=== PATIENT | female | born 1965 | race American Indian/Alaskan Native ===

== ENCOUNTER 2022-01-16 14:35 | Inpatient (IN) | payer MEDICAID ==
--- NOTE | 2022-01-17 09:46 | History and Physical Report ---
GP History & Physical - History of Present Illness Date of admission: 01/17/22 Date of Examination: 01/17/22 Reason for Admission: Danger to self, Danger to others, Failure of Outpatient Treatment Chief Complaint: Suicidal/homicidal ideation History of Present Illness: The patient is a 56 year old female with history of schizophrenia, depression, and anxiety disorder who was admitted for stabilization. The patient was seen today. She is calm, and withdrawn. The patient presents with ongoing depression and intermittent suicidal ideation. She reports having multiple psychiatric inpatient admission and suicidal attempt. The patient reports cocaine use abuse, states she last used crack on 01/15; denies any withdrawal symptoms and denies crack cravings. The patient denies any current suicidal /homicidal ideation " not yet." She reports having intermittent AVH. PAST PSYCHIATRIC HISTORY: Diagnoses: schizophrenia, depression, anxiety Suicide attempts or Self-harm behavior: Yes Prior psychiatric hospitalizations: Yes Substance Abuse history: Crack Previous psychiatric medications tried: Seroquel, Effexor Outpatient treatment: Unknown PAST MEDICAL HISTORY: Family Psychiatric History None reported or documented SOCIAL HISTORY Marital Status: Single Living Arrangements: Homeless Employment Status: Unemployed Access to guns/weapons: Denies Education: Unable to tell History of Abuse: Denies Legal History: Unknown REVIEW OF SYSTEMS Constitutional: Negative for weight loss ENT: Negative for stridor Respiratory: Negative for cough or hemoptysis All other systems reviewed and are negative MENTAL STATUS General Appearance and Behavior: age appropriate, good eye contact, cooperative, calm Cooperation: Cooperative Psychomotor Behavior: within normal limits Mood: Depressed Affect and affective range: Congruent with stated mood Thought Process: goal oriented Thought Content: reality oriented Speech: Normal volume and Regular rate and rhythm Suicidal Ideation: Denies Homicidal Ideation: Denies HI Hallucinations:AV intermittent Delusions: None elicited Impulse Control: Limited Insight and Judgment: Limited Memory: Limited Attention: Attentive Orientation: alert and oriented Diagnosis: Schizoaffective Disorder Treatment Plan Patient will be admitted for inpatient psychiatric evaluation, medication adjustment and close monitoring The patient's behavior, mood, sleep and appetite will be closely monitored. Patient will be enrolled in individual and group therapeutic sessions and encou raged to attend. Patient will be provided with a safe and structured environment. Patient's physical health needs will be addressed by the Hospitalist. Hospitalist Consulted Labs including CBC, CMP, Lipid profile and Hemoglobin A1C ordered Social Assessment will be completed and the Italian Teacher will work with patient and family to ensure a suitable and safe disposition Medication adjustment will be made as clinically indicated Usual Wellness Holiness/Preservation: -Continue home meds The patient agreed on the treatment plan, understood the risk, benefit, alternative treatment, potential consequence of no treatment, and gave informed consent. Legal Status: voluntary Reaction to Hospitalization: Accepting Medications and Allergies Allergies Allergy/AdvReac Type Severity Reaction Status Date / Time cat dander Allergy Unknown Verified 01/16/22 20:32 No Known Drug Allergies Allergy Unknown Verified 01/16/22 20:32 Dust Allergy Unknown Uncoded 01/16/22 20:32 Home Medications Medication Instructions Recorded Confirmed Last Taken Type Amlodipine Besylate [Norvasc] 10 mg PO DAILY 01/16/22 01/16/22 Unknown History Levothyroxine [Synthroid] 100 mcg PO QAM 01/16/22 01/16/22 Unknown History Losartan [Cozaar] 50 mg PO QDAY 01/16/22 01/16/22 Unknown History QUEtiapine [SEROquel] 100 mg PO HS 01/16/22 01/16/22 Unknown History Venlafaxine HCl [Effexor Xr] 150 mg PO DAILY 01/16/22 01/16/22 Unknown History hydroCHLOROthiazide [HCTZ] 25 mg PO QDAY 01/16/22 01/16/22 Unknown History Apixaban [Eliquis] 5 mg PO UNK 01/17/22 01/17/22 Unknown History Cetirizine HCl [Allergy] 10 mg PO DAILY 01/17/22 01/17/22 Unknown History Diclofenac 1% [Diclofenac 1% 20 applic TP QID 01/17/22 01/17/22 Unknown History topical gel] Dolutegravir Sodium/Lamivudine 1 tab PO DAILY 01/17/22 01/17/22 Unknown History [Dovato 50-300 mg Tablet] Dolutegravir Sodium/Lamivudine 1 tab PO DAILY 01/17/22 01/17/22 Unknown History [Dovato 50-300 mg Tablet] Dolutegravir [Tivicay] 1 tab PO DAILY 01/17/22 01/17/22 Unknown History Gabapentin 300 mg PO UNK 01/17/22 01/17/22 Unknown History Meloxicam [Mobic] 15 mg PO QDAY 01/17/22 01/17/22 Unknown History Oxycodone HCl/Acetaminophen 1 each PO Q6H MDD pain 01/17/22 01/17/22 10/13/21 History [Oxycodone-Acetaminophen 10-325] lamiVUDine [Lamivudine] 2 tab PO DAILY 01/17/22 01/17/22 Unknown History metFORMIN [Glucophage] 500 mg PO UNK 01/17/22 01/17/22 Unknown History Results - Results Labs/Vitals: Laboratory Last Values POC Glucose 133 mg/dL (70-105) H 01/17/22 06:35 Physician Certification - Certification Statement Physician Certification Statement: This is an acknowledgement statement that ONEYDA ALEXIS is a 56 year old F who requires inpatient psychiatric admission for treatment which could reasonably be expected to improve the patient's condition for Estimated period of time patient will need to remain in the hospital: [ ] Plan for post-hospital care: [ ]
[2022-01-17] MEDS ORDERED: NON-FORMULARY EACH (Venlafaxine Hcl [Effexor Xr] 150 MG Cap.Er.24h) PO SCH (10:15)
[2022-01-17] MEDS ORDERED: DOLUTEGRAVIR SODIUM PO SCH (10:15)
[2022-01-17] MEDS ORDERED: [UNRECOGNIZED DRUG - OTHER] PO SCH (10:15)
[2022-01-17] MEDS ORDERED: LAMIVUDINE PO SCH (10:15)
[2022-01-17] MEDS ORDERED: amLODIPine 5 MG TAB PO SCH (11:00)
[2022-01-17] MEDS ORDERED: metFORMIN 500 MG TAB PO SCH (11:00)
[2022-01-17] MEDS ORDERED: ACETAMINOPHEN 325 MG TAB PO PRN (11:30)
[2022-01-17] MEDS: VENLAFAXINE XR 75 MG CAP PO SCH (12:43)
[2022-01-17] MEDS: DOLUTEGRAVIR 50 MG TAB PO SCH (12:45)
[2022-01-17] MEDS: hydroCHLOROthiazide 25 MG TAB PO SCH (12:45)
[2022-01-17] MEDS: CETIRIZINE 10 MG TAB PO SCH (15:07)
[2022-01-17] MEDS: QUEtiapine 100 MG TAB PO SCH (21:04)
--- NOTE | 2022-01-18 08:57 | Consultation ---
History of Present Illness - History of Present Illness History of Present Illness: The patient is a 56 year old female with history of schizophrenia, depression, and anxiety disorder who was admitted for stabilization. Internal medicine service consulted for medication management. Patient states that she has no acute symptomology. Remainder of ROS negative except for stated above. PMHx: Hypertension, schizophrenia, anxiety, HIV, hepatitis B, diabetes PSHx: Tubal ligation FHx: Reviewed noncontributory SHx: Tobacco use-denies ETOH Use-denies Recreational Drug Use-uses crack Homeless Medications and Allergies Allergies Allergy/AdvReac Type Severity Reaction Status Date / Time cat dander Allergy Unknown Verified 01/16/22 20:32 No Known Drug Allergies Allergy Unknown Verified 01/16/22 20:32 Dust Allergy Unknown Uncoded 01/16/22 20:32 Home Medications Medication Instructions Recorded Confirmed Last Taken Type Amlodipine Besylate [Norvasc] 10 mg PO DAILY 01/16/22 01/16/22 Unknown History Levothyroxine [Synthroid] 100 mcg PO QAM 01/16/22 01/16/22 Unknown History Losartan [Cozaar] 50 mg PO QDAY 01/16/22 01/16/22 Unknown History QUEtiapine [SEROquel] 100 mg PO HS 01/16/22 01/16/22 Unknown History Venlafaxine HCl [Effexor Xr] 150 mg PO DAILY 01/16/22 01/16/22 Unknown History hydroCHLOROthiazide [HCTZ] 25 mg PO QDAY 01/16/22 01/16/22 Unknown History Apixaban [Eliquis] 5 mg PO UNK 01/17/22 01/17/22 Unknown History Cetirizine HCl [Allergy] 10 mg PO DAILY 01/17/22 01/17/22 Unknown History Diclofenac 1% [Diclofenac 1% 20 applic TP QID 01/17/22 01/17/22 Unknown History topical gel] Dolutegravir Sodium/Lamivudine 1 tab PO DAILY 01/17/22 01/17/22 Unknown History [Dovato 50-300 mg Tablet] Dolutegravir Sodium/Lamivudine 1 tab PO DAILY 01/17/22 01/17/22 Unknown History [Dovato 50-300 mg Tablet] Dolutegravir [Tivicay] 1 tab PO DAILY 01/17/22 01/17/22 Unknown History Gabapentin 300 mg PO UNK 01/17/22 01/17/22 Unknown History Meloxicam [Mobic] 15 mg PO QDAY 01/17/22 01/17/22 Unknown History Oxycodone HCl/Acetaminophen 1 each PO Q6H MDD pain 01/17/22 01/17/22 10/13/21 History [Oxycodone-Acetaminophen 10-325] lamiVUDine [Lamivudine] 2 tab PO DAILY 01/17/22 01/17/22 Unknown History metFORMIN [Glucophage] 500 mg PO UNK 01/17/22 01/17/22 Unknown History Active Meds: Active Medications Acetaminophen (Acetaminophen 325 Mg Tab) 650 mg PO Q6H PRN PRN Reason: Pain, Mild (1-3) Last Admin: 01/17/22 12:42 Dose: 650 mg Amlodipine Besylate (Amlodipine 10 Mg Tab) 10 mg PO DAILY [facility] Cetirizine HCl (Cetirizine 10 Mg Tab) 10 mg PO DAILY [facility] Last Admin: 01/17/22 15:07 Dose: 10 mg Dolutegravir Sodium (Dolutegravir 50 Mg Tab) 50 mg PO DAILY [facility] Last Admin: 01/17/22 12:45 Dose: 50 mg Hydrochlorothiazide (Hydrochlorothiazide 25 Mg Tab) 25 mg PO QDAY [facility] Last Admin: 01/17/22 12:45 Dose: 25 mg Lamivudine (Lamivudine 150 Mg Tab) 300 mg PO QDAY [facility] Last Admin: 01/17/22 12:44 Dose: 300 mg Levothyroxine Sodium (Levothyroxine 100 Mcg Tab) [facility] [place] [facility] Metformin HCl (Metformin 500 Mg Tab) 500 mg PO QDAY [facility] Quetiapine Fumarate (Quetiapine 100 Mg Tab) 100 mg PO [facility] Last Admin: 01/17/22 21:04 Dose: 100 mg Venlafaxine HCl (Venlafaxine Xr 75 Mg Cap) 150 mg PO QDAY [facility] Last Admin: 01/17/22 12:43 Dose: 150 mg Review of Systems All systems: negative (noted in HPI) Exam - Physical Exam Narrative exam: Physical Exam: VITAL SIGNS: Reviewed. GENERAL: The patient appears normally developed, Vital signs as documented. Obese HEAD: No signs of head trauma. EYES: Pupils are equal. Extraocular motions intact. EARS: Hearing grossly intact. MOUTH: Oropharynx is normal. NECK: No adenopathy, no JVD. CHEST: Chest with clear breath sounds bilaterally. No wheezes, rales, or rhonchi. CARDIAC: Regular rate and rhythm. S1 and S2, without murmurs, gallops, or rubs. VASCULAR: No Edema. Peripheral pulses normal and equal in all extremities. ABDOMEN: Soft, non tender and non distended. No rebound or guarding, and no masses palpated. Bowel Sounds normal. MUSCULOSKELETAL: Good range of motion of all major joints. Extremities without clubbing, cyanosis or edema. NEUROLOGIC EXAM: Alert and oriented x 4. no focal sensory or strength deficits. PSYCHIATRIC: Mood normal. SKIN: detail exam as documented in skin assessment - Constitutional Vitals: Temp Pulse Resp BP Pulse Ox 97.9 F 53 L 18 129/76 100 01/17/22 22:00 01/17/22 22:00 01/17/22 22:00 01/17/22 19:56 01/17/22 22:00 Results - Labs CBC & Chem 7: 01/18/22 09:50 01/18/22 09:50 Assessment and Plan Assessment and Plan: #Suicidal ideation #Anxiety disorder #Schizophrenia #Hypertension #Type 2 diabetes #Cocaine use -+15 minutes behavioral health counseling on drug abstinence #HIV history #Hepatitis B #Hypothyroidism #Advance care planning Disease education conducted, care plan discussed, diagnoses discussed, prognosis discussed, patient is full code, patient acknowledges understanding and agree with care plan, +30 minutes. Plan -Psychiatric medication management per inpatient psych service -Monitor blood pressure daily -Accu-Cheks ACHS - labs reviewed: Cr: 1.5 recheck BMP tomorrow AM. Could be chronic vs acute. -Home blood pressure medication: Norvasc, hydrochlorothiazide Home thyroid medication: Levothyroxine Home diabetes medication metformin. - Home HIV medication: Tivicay - home Hep B medication: Epivir IMS will continue to follow while patient in hospital.
--- NOTE | 2022-01-18 09:36 | Progress Note ---
Subjective Date of service: 01/18/22 Subjective Comment: 01/18:The patient seen today. She states she is doing well. She continues to endorse depression and rates as 10/10. No withdrawal symptom noted and she denies having cravings for crack. The patient denies any current suicidal/homicidal ideation and denies hallucinations. REVIEW OF SYSTEMS Constitutional: Negative for weight loss ENT: Negative for stridor Respiratory: Negative for cough or hemoptysis All other systems reviewed and are negative MENTAL STATUS General Appearance and Behavior: age appropriate, good eye contact, cooperative, calm Cooperation: Cooperative Psychomotor Behavior: within normal limits Mood: Depressed Affect and affective range: Congruent with stated mood Thought Process: goal oriented Thought Content: reality oriented Speech: Normal volume and Regular rate and rhythm Suicidal Ideation: Denies Homicidal Ideation: Denies HI Hallucinations:Denies Delusions: None elicited Impulse Control: Limited Insight and Judgment: Limited Memory: Limited Attention: Attentive Orientation: alert and oriented Diagnosis: Schizoaffective Disorder Treatment Plan Patient will be admitted for inpatient psychiatric evaluation, medication adjustment and close monitoring The patient's behavior, mood, sleep and appetite will be closely monitored. Patient will be enrolled in individual and group therapeutic sessions and encouraged to attend. Patient will be provided with a safe and structured environment. Patient's physical health needs will be addressed by the Hospitalist. Hospitalist Consulted Labs including CBC, CMP, Lipid profile and Hemoglobin A1C ordered Social Assessment will be completed and the Administrative Support Associate will work with patient and family to ensure a suitable and safe disposition Medication adjustment will be made as clinically indicated Usual Wellness Denominational/Preservation: -Continue home meds The patient agreed on the treatment plan, understood the risk, benefit, alternative treatment, potential consequence of no treatment, and gave informed consent. Legal Status: voluntary Reaction to Hospitalization: Accepting Medications and Allergies Medications and Allergies Allergies Allergy/AdvReac Type Severity Reaction Status Date / Time cat dander Allergy Unknown Verified 01/16/22 20:32 No Known Drug Allergies Allergy Unknown Verified 01/16/22 20:32 Dust Allergy Unknown Uncoded 01/16/22 20:32 Home Medications Medication Instructions Recorded Confirmed Last Taken Type Amlodipine Besylate [Norvasc] 10 mg PO DAILY 01/16/22 01/16/22 Unknown History Levothyroxine [Synthroid] 100 mcg PO QAM 01/16/22 01/16/22 Unknown History Losartan [Cozaar] 50 mg PO QDAY 01/16/22 01/16/22 Unknown History QUEtiapine [SEROquel] 100 mg PO HS 01/16/22 01/16/22 Unknown History Venlafaxine HCl [Effexor Xr] 150 mg PO DAILY 01/16/22 01/16/22 Unknown History hydroCHLOROthiazide [HCTZ] 25 mg PO QDAY 01/16/22 01/16/22 Unknown History Apixaban [Eliquis] 5 mg PO UNK 01/17/22 01/17/22 Unknown History Cetirizine HCl [Allergy] 10 mg PO DAILY 01/17/22 01/17/22 Unknown History Diclofenac 1% [Diclofenac 1% 20 applic TP QID 01/17/22 01/17/22 Unknown History topical gel] Dolutegravir Sodium/Lamivudine 1 tab PO DAILY 01/17/22 01/17/22 Unknown History [Dovato 50-300 mg Tablet] Dolutegravir Sodium/Lamivudine 1 tab PO DAILY 01/17/22 01/17/22 Unknown History [Dovato 50-300 mg Tablet] Dolutegravir [Tivicay] 1 tab PO DAILY 01/17/22 01/17/22 Unknown History Gabapentin 300 mg PO UNK 01/17/22 01/17/22 Unknown History Meloxicam [Mobic] 15 mg PO QDAY 01/17/22 01/17/22 Unknown History Oxycodone HCl/Acetaminophen 1 each PO Q6H MDD pain 01/17/22 01/17/22 10/13/21 History [Oxycodone-Acetaminophen 10-325] lamiVUDine [Lamivudine] 2 tab PO DAILY 01/17/22 01/17/22 Unknown History metFORMIN [Glucophage] 500 mg PO UNK 01/17/22 01/17/22 Unknown History Active Meds: Active Medications Acetaminophen (Acetaminophen 325 Mg Tab) 650 mg PO Q6H PRN PRN Reason: Pain, Mild (1-3) Last Admin: 01/17/22 12:42 Dose: 650 mg Amlodipine Besylate (Amlodipine 10 Mg Tab) 10 mg PO DAILY [facility] Cetirizine HCl (Cetirizine 10 Mg Tab) 10 mg PO DAILY [facility] Last Admin: 01/17/22 15:07 Dose: 10 mg Dolutegravir Sodium (Dolutegravir 50 Mg Tab) 50 mg PO DAILY [facility] Last Admin: 01/17/22 12:45 Dose: 50 mg Hydrochlorothiazide (Hydrochlorothiazide 25 Mg Tab) 25 mg PO QDAY [facility] Last Admin: 01/17/22 12:45 Dose: 25 mg Lamivudine (Lamivudine 150 Mg Tab) 300 mg PO QDAY [facility] Last Admin: 01/17/22 12:44 Dose: 300 mg Levothyroxine Sodium (Levothyroxine 100 Mcg Tab) 100 mcg PO QAM [facility] Metformin HCl (Metformin 500 Mg Tab) 500 mg PO QDAY [facility] Quetiapine Fumarate (Quetiapine 100 Mg Tab) 100 mg PO [facility] Last Admin: 01/17/22 21:04 Dose: 100 mg Venlafaxine HCl (Venlafaxine Xr 75 Mg Cap) 150 mg PO QDAY [facility] Last Admin: 01/17/22 12:43 Dose: 150 mg Results - Results Labs/Vitals: Laboratory Last Values POC Glucose 104 mg/dL (70-105) 01/17/22 19:50 Last Vital Signs Temp 98.7 F 01/18/22 08:31 Pulse 67 01/18/22 08:31 Resp 16 01/18/22 08:31 BP 111/66 01/18/22 08:31 Pulse Ox 98 01/18/22 08:31
[2022-01-18] MEDS ORDERED: DOLUTEGRAVIR 50 MG TAB PO SCH (10:00)
[2022-01-18] MEDS ORDERED: LEVOTHYROXINE 100 MCG TAB PO SCH (10:00)
[2022-01-18] MEDS: DOLUTEGRAVIR 50 MG TAB PO SCH (10:14)
[2022-01-18] MEDS: CETIRIZINE 10 MG TAB PO SCH (10:14)
[2022-01-18] MEDS: VENLAFAXINE XR 75 MG CAP PO SCH (10:14)
[2022-01-18] MEDS: amLODIPine 10 MG TAB PO SCH (10:14)
[2022-01-18] MEDS: hydroCHLOROthiazide 25 MG TAB PO SCH (10:15)
[2022-01-18 10:17] LABS: Basophils % (Auto) 0.8 % (0.0-1.8); Eosinophils # (Auto) 0.2 K/mm3 (0.0-0.4); Eosinophils % (Auto) 2.4 % (0.0-4.3); Hematocrit 31.7 % (30.3-42.9); Hemoglobin 10.6 gm/dl (10.1-14.3); Lymphocytes # (Auto) 1.9 K/mm3 (1.2-5.4); Lymphocytes % (Auto) 30.1 % (13.4-35.0); Mean Corpuscular HGB Conc 34 % (30-34); Mean Corpuscular Volume 88 fl (79-97); Monocytes # (Auto) 0.5 K/mm3 (0.0-0.8); Monocytes % (Auto) 8.7 % (0.0-7.3); Platelet Count 223 K/mm3 (140-440); Red Blood Count 3.62 M/mm3 (3.65-5.03)
[2022-01-18 10:30] LABS: Albumin 4.1 g/dL (3.9-5); Calcium 9.7 mg/dL (8.4-10.2); Chol/HDL Ratio 2.08 %
[2022-01-18] MEDS ORDERED: metFORMIN 500 MG TAB PO SCH (11:00)
[2022-01-18] MEDS: QUEtiapine 100 MG TAB PO SCH (21:12)
[2022-01-19] MEDS: LEVOTHYROXINE 100 MCG TAB PO SCH (06:06)
--- NOTE | 2022-01-19 07:56 | Progress Note ---
Assessment and Plan Assessment and plan: Assessment and Plan: #Suicidal ideation #Anxiety disorder #Schizophrenia #Hypertension #Type 2 diabetes #Chronic kidney disease, Stage 3 #Cocaine use -+15 minutes behavioral health counseling on drug abstinence #HIV history #Hepatitis B #Hypothyroidism #Advance care planning Disease education conducted, care plan discussed, diagnoses discussed, prognosis discussed, patient is full code, patient acknowledges understanding and agree with care plan, +30 minutes. Plan -Psychiatric medication management per inpatient psych service -Monitor blood pressure daily -Accu-Cheks ACHS - labs reviewed: Cr: 1.5 recheck BMP reveals Cr: 1.6 Likely chronic. -Home blood pressure medication: Norvasc, hydrochlorothiazide Home thyroid medication: Levothyroxine Home diabetes medication metformin. - Home HIV medication: Tivicay - home Hep B medication: Epivir IMS will continue to follow while patient in hospital. History Interval history: NO acute complaints. Hospitalist Physical - Physical exam Narrative exam: Physical Exam: VITAL SIGNS: Reviewed. GENERAL: The patient appears normally developed, Vital signs as documented. Obese HEAD: No signs of head trauma. EYES: Pupils are equal. Extraocular motions intact. EARS: Hearing grossly intact. MOUTH: Oropharynx is normal. NECK: No adenopathy, no JVD. CHEST: Chest with clear breath sounds bilaterally. No wheezes, rales, or rhonchi. CARDIAC: Regular rate and rhythm. S1 and S2, without murmurs, gallops, or rubs. VASCULAR: No Edema. Peripheral pulses normal and equal in all extremities. ABDOMEN: Soft, non tender and non distended. No rebound or guarding, and no masses palpated. Bowel Sounds normal. MUSCULOSKELETAL: Good range of motion of all major joints. Extremities without clubbing, cyanosis or edema. NEUROLOGIC EXAM: Alert and oriented x 4. no focal sensory or strength deficits. PSYCHIATRIC: Mood normal. SKIN: detail exam as documented in skin assessment - Constitutional Vitals: Temp Pulse Resp BP Pulse Ox 98.5 F 64 18 123/75 99 01/18/22 18:56 01/18/22 18:56 01/18/22 18:56 01/18/22 18:56 01/18/22 18:56 Results - Labs CBC & Chem 7: 01/18/22 09:50 01/19/22 13:32 Labs: Laboratory Last Values WBC 6.3 K/mm3 (4.5-11.0) 01/18/22 09:50 RBC 3.62 M/mm3 (3.65-5.03) L 01/18/22 09:50 Hgb 10.6 gm/dl (10.1-14.3) 01/18/22 09:50 Hct 31.7 % (30.3-42.9) 01/18/22 09:50 MCV 88 fl (79-97) 01/18/22 09:50 MCH 29 pg (28-32) 01/18/22 09:50 MCHC 34 % (30-34) 01/18/22 09:50 RDW 14.0 % (13.2-15.2) 01/18/22 09:50 Plt Count 223 K/mm3 (140-440) 01/18/22 09:50 Lymph % (Auto) 30.1 % (13.4-35.0) 01/18/22 09:50 Nye % (Auto) 8.7 % (0.0-7.3) H 01/18/22 09:50 Eos % (Auto) 2.4 % (0.0-4.3) 01/18/22 09:50 Baso % (Auto) 0.8 % (0.0-1.8) 01/18/22 09:50 Lymph # (Auto) 1.9 K/mm3 (1.2-5.4) 01/18/22 09:50 Nye # (Auto) 0.5 K/mm3 (0.0-0.8) 01/18/22 09:50 Eos # (Auto) 0.2 K/mm3 (0.0-0.4) 01/18/22 09:50 Baso # (Auto) 0.0 K/mm3 (0.0-0.1) 01/18/22 09:50 Seg Neutrophils % 58.0 % (40.0-70.0) 01/18/22 09:50 Seg Neutrophils # 3.6 K/mm3 (1.8-7.7) 01/18/22 09:50 Sodium 143 mmol/L (137-145) 01/18/22 09:50 Potassium 4.1 mmol/L (3.6-5.0) 01/18/22 09:50 Chloride 103.9 mmol/L (98-107) 01/18/22 09:50 Carbon Dioxide 31 mmol/L (22-30) H 01/18/22 09:50 Anion Gap 12 mmol/L 01/18/22 09:50 BUN 26 mg/dL (7-17) H 01/18/22 09:50 Creatinine 1.5 mg/dL (0.6-1.2) H 01/18/22 09:50 Estimated GFR 43 ml/min 01/18/22 09:50 BUN/Creatinine Ratio 17 % 01/18/22 09:50 Glucose 85 mg/dL (65-100) 01/18/22 09:50 POC Glucose 89 mg/dL (70-105) 01/19/22 06:21 Hemoglobin A1c 6.4 % (4-6) H 01/18/22 09:50 Calcium 9.7 mg/dL (8.4-10.2) 01/18/22 09:50 Total Bilirubin 0.30 mg/dL (0.1-1.2) 01/18/22 09:50 AST 12 units/L (5-40) 01/18/22 09:50 ALT 11 units/L (7-56) 01/18/22 09:50 Alkaline Phosphatase 88 units/L (35-129) 01/18/22 09:50 Total Protein 6.6 g/dL (6.3-8.2) 01/18/22 09:50 Albumin 4.1 g/dL (3.9-5) 01/18/22 09:50 Albumin/Globulin Ratio 1.6 % 01/18/22 09:50 Triglycerides 60 mg/dL (2-149) 01/18/22 09:50 Cholesterol 177 mg/dL (50-199) 01/18/22 09:50 LDL Cholesterol Direct 77 mg/dL (50-130) 01/18/22 09:50 HDL Cholesterol 85 mg/dL (40-59) H 01/18/22 09:50 Cholesterol/HDL Ratio 2.08 % 01/18/22 09:50 TSH 1.110 mlU/mL (0.270-4.200) 01/18/22 09:50 Langston/IV: Voiding Method Toilet Active Medications - Current Medications Current Medications: Generic Name Dose Route Start Last Admin Trade Name Matiasq PRN Reason Stop Dose Admin Acetaminophen 650 mg 01/17/22 11:30 01/17/22 12:42 Acetaminophen 325 Mg Tab PO 650 mg Q6H PRN Administration Pain, Mild (1-3) Amlodipine Besylate 10 mg 01/18/22 10:00 01/18/22 10:14 Amlodipine 10 Mg Tab PO 10 mg DAILY NOHEMI Administration Cetirizine HCl 10 mg 01/17/22 11:00 01/18/22 10:14 Cetirizine 10 Mg Tab PO 10 mg DAILY NOHEMI Administration Dolutegravir Sodium 50 mg 01/17/22 11:00 01/18/22 10:14 Dolutegravir 50 Mg Tab PO 50 mg DAILY NOHEMI Administration Hydrochlorothiazide 25 mg 01/17/22 11:00 01/18/22 10:15 Hydrochlorothiazide 25 Mg Tab PO 25 mg QDAY NOHEMI Administration Lamivudine 300 mg 01/17/22 11:00 01/18/22 10:14 Lamivudine 150 Mg Tab PO 300 mg QDAY NOHEMI Administration Levothyroxine Sodium 100 mcg 01/19/22 06:00 01/19/22 06:06 Levothyroxine 100 Mcg Tab PO 100 mcg 0600 NOHEMI Administration Metformin HCl 500 mg 01/19/22 08:00 Metformin 500 Mg Tab PO QDDIAB NOHEMI Quetiapine Fumarate 100 mg 01/17/22 22:00 01/18/22 21:12 Quetiapine 100 Mg Tab PO 100 mg HS NOHEMI Administration Venlafaxine HCl 150 mg 01/17/22 10:15 01/18/22 10:14 Venlafaxine Xr 75 Mg Cap PO 150 mg QDAY NOHEMI Administration
--- NOTE | 2022-01-19 09:34 | Progress Note ---
Subjective Date of service: 01/19/22 Subjective Comment: 01/19:The patient seen today. She states she is feeling better, reports depression as 8/10. She reports sleep and appetite as good. The patient denies any current suicidal/homicidal ideation and denies hallucinations. No changes made today. 01/18:The patient seen today. She states she is doing well. She continues to endorse depression and rates as 10/10. No withdrawal symptom noted and she denies having cravings for crack. The patient denies any current suicidal/homicidal ideation and denies hallucinations. REVIEW OF SYSTEMS Constitutional: Negative for weight loss ENT: Negative for stridor Respiratory: Negative for cough or hemoptysis All other systems reviewed and are negative MENTAL STATUS General Appearance and Behavior: age appropriate, good eye contact, cooperative, calm Cooperation: Cooperative Psychomotor Behavior: within normal limits Mood: Depressed Affect and affective range: Congruent with stated mood Thought Process: goal oriented Thought Content: reality oriented Speech: Normal volume and Regular rate and rhythm Suicidal Ideation: Denies Homicidal Ideation: Denies HI Hallucinations:Denies Delusions: None elicited Impulse Control: Limited Insight and Judgment: Limited Memory: Limited Attention: Attentive Orientation: alert and oriented Diagnosis: Schizoaffective Disorder Treatment Plan Patient will be admitted for inpatient psychiatric evaluation, medication adjustment and close monitoring The patient's behavior, mood, sleep and appetite will be closely monitored. Patient will be enrolled in individual and group therapeutic sessions and encouraged to attend. Patient will be provided with a safe and structured environment. Patient's physical health needs will be addressed by the Hospitalist. Hospitalist Consulted Labs including CBC, CMP, Lipid profile and Hemoglobin A1C ordered Social Assessment will be completed and the Costume Shop Manager will work with patient and family to ensure a suitable and safe disposition Medication adjustment will be made as clinically indicated Usual Wellness Hoahaoism/Preservation: -Continue home meds The patient agreed on the treatment plan, understood the risk, benefit, alternative treatment, potential consequence of no treatment, and gave informed consent. Legal Status: voluntary Reaction to Hospitalization: Accepting Medications and Allergies Medications and Allergies Allergies Allergy/AdvReac Type Severity Reaction Status Date / Time cat dander Allergy Unknown Verified 01/16/22 20:32 No Known Drug Allergies Allergy Unknown Verified 01/16/22 20:32 Dust Allergy Unknown Uncoded 01/16/22 20:32 Home Medications Medication Instructions Recorded Confirmed Last Taken Type Amlodipine Besylate [Norvasc] 10 mg PO DAILY 01/16/22 01/16/22 Unknown History Levothyroxine [Synthroid] 100 mcg PO QAM 01/16/22 01/16/22 Unknown History Losartan [Cozaar] 50 mg PO QDAY 01/16/22 01/16/22 Unknown History QUEtiapine [SEROquel] 100 mg PO HS 01/16/22 01/16/22 Unknown History Venlafaxine HCl [Effexor Xr] 150 mg PO DAILY 01/16/22 01/16/22 Unknown History hydroCHLOROthiazide [HCTZ] 25 mg PO QDAY 01/16/22 01/16/22 Unknown History Apixaban [Eliquis] 5 mg PO UNK 01/17/22 01/17/22 Unknown History Cetirizine HCl [Allergy] 10 mg PO DAILY 01/17/22 01/17/22 Unknown History Diclofenac 1% [Diclofenac 1% 20 applic TP QID 01/17/22 01/17/22 Unknown History topical gel] Dolutegravir Sodium/Lamivudine 1 tab PO DAILY 01/17/22 01/17/22 Unknown History [Dovato 50-300 mg Tablet] Dolutegravir Sodium/Lamivudine 1 tab PO DAILY 01/17/22 01/17/22 Unknown History [Dovato 50-300 mg Tablet] Dolutegravir [Tivicay] 1 tab PO DAILY 01/17/22 01/17/22 Unknown History Gabapentin 300 mg PO UNK 01/17/22 01/17/22 Unknown History Meloxicam [Mobic] 15 mg PO QDAY 01/17/22 01/17/22 Unknown History Oxycodone HCl/Acetaminophen 1 each PO Q6H MDD pain 01/17/22 01/17/22 10/13/21 History [Oxycodone-Acetaminophen 10-325] lamiVUDine [Lamivudine] 2 tab PO DAILY 01/17/22 01/17/22 Unknown History metFORMIN [Glucophage] 500 mg PO UNK 01/17/22 01/17/22 Unknown History Active Meds: Active Medications Acetaminophen (Acetaminophen 325 Mg Tab) 650 mg PO Q6H PRN PRN Reason: Pain, Mild (1-3) Last Admin: 01/17/22 12:42 Dose: 650 mg Amlodipine Besylate (Amlodipine 10 Mg Tab) 10 mg PO DAILY [facility] Last Admin: 01/18/22 10:14 Dose: 10 mg Cetirizine HCl (Cetirizine 10 Mg Tab) 10 mg PO DAILY [facility] Last Admin: 01/18/22 10:14 Dose: 10 mg Dolutegravir Sodium (Dolutegravir 50 Mg Tab) 50 mg PO DAILY [facility] Last Admin: 01/18/22 10:14 Dose: 50 mg Hydrochlorothiazide (Hydrochlorothiazide 25 Mg Tab) 25 mg PO QDAY [facility] Last Admin: 01/18/22 10:15 Dose: 25 mg Lamivudine (Lamivudine 150 Mg Tab) 300 mg PO QDAY [facility] Last Admin: 01/18/22 10:14 Dose: 300 mg Levothyroxine Sodium (Levothyroxine 100 Mcg Tab) 100 mcg PO 0600 [facility] Last Admin: 01/19/22 06:06 Dose: 100 mcg Metformin HCl (Metformin 500 Mg Tab) 500 mg PO QDDIAB [facility] Quetiapine Fumarate (Quetiapine 100 Mg Tab) 100 mg PO [facility] Last Admin: 01/18/22 21:12 Dose: 100 mg Venlafaxine HCl (Venlafaxine Xr 75 Mg Cap) 150 mg PO QDAY [facility] Last Admin: 01/18/22 10:14 Dose: 150 mg Results - Results Labs/Vitals: Laboratory Last Values WBC 6.3 K/mm3 (4.5-11.0) 01/18/22 09:50 RBC 3.62 M/mm3 (3.65-5.03) L 01/18/22 09:50 Hgb 10.6 gm/dl (10.1-14.3) 01/18/22 09:50 Hct 31.7 % (30.3-42.9) 01/18/22 09:50 MCV 88 fl (79-97) 01/18/22 09:50 MCH 29 pg (28-32) 01/18/22 09:50 MCHC 34 % (30-34) 01/18/22 09:50 RDW 14.0 % (13.2-15.2) 01/18/22 09:50 Plt Count 223 K/mm3 (140-440) 01/18/22 09:50 Lymph % (Auto) 30.1 % (13.4-35.0) 01/18/22 09:50 [place] % (Auto) 8.7 % (0.0-7.3) H 01/18/22 09:50 Eos % (Auto) 2.4 % (0.0-4.3) 01/18/22 09:50 Baso % (Auto) 0.8 % (0.0-1.8) 01/18/22 09:50 Lymph # (Auto) 1.9 K/mm3 (1.2-5.4) 01/18/22 09:50 [place] # (Auto) 0.5 K/mm3 (0.0-0.8) 01/18/22 09:50 Eos # (Auto) 0.2 K/mm3 (0.0-0.4) 01/18/22 09:50 Baso # (Auto) 0.0 K/mm3 (0.0-0.1) 01/18/22 09:50 Seg Neutrophils % 58.0 % (40.0-70.0) 01/18/22 09:50 Seg Neutrophils # 3.6 K/mm3 (1.8-7.7) 01/18/22 09:50 Sodium 143 mmol/L (137-145) 01/18/22 09:50 Potassium 4.1 mmol/L (3.6-5.0) 01/18/22 09:50 Chloride 103.9 mmol/L (98-107) 01/18/22 09:50 Carbon Dioxide 31 mmol/L (22-30) H 01/18/22 09:50 Anion Gap 12 mmol/L 01/18/22 09:50 BUN 26 mg/dL (7-17) H 01/18/22 09:50 Creatinine 1.5 mg/dL (0.6-1.2) H 01/18/22 09:50 Estimated GFR 43 ml/min 01/18/22 09:50 BUN/Creatinine Ratio 17 % 01/18/22 09:50 Glucose 85 mg/dL (65-100) 01/18/22 09:50 POC Glucose 89 mg/dL (70-105) 01/19/22 06:21 Hemoglobin A1c 6.4 % (4-6) H 01/18/22 09:50 Calcium 9.7 mg/dL (8.4-10.2) 01/18/22 09:50 Total Bilirubin 0.30 mg/dL (0.1-1.2) 01/18/22 09:50 AST 12 units/L (5-40) 01/18/22 09:50 ALT 11 units/L (7-56) 01/18/22 09:50 Alkaline Phosphatase 88 units/L (35-129) 01/18/22 09:50 Total Protein 6.6 g/dL (6.3-8.2) 01/18/22 09:50 Albumin 4.1 g/dL (3.9-5) 01/18/22 09:50 Albumin/Globulin Ratio 1.6 % 01/18/22 09:50 Triglycerides 60 mg/dL (2-149) 01/18/22 09:50 Cholesterol 177 mg/dL (50-199) 01/18/22 09:50 LDL Cholesterol Direct 77 mg/dL (50-130) 01/18/22 09:50 HDL Cholesterol 85 mg/dL (40-59) H 01/18/22 09:50 Cholesterol/HDL Ratio 2.08 % 01/18/22 09:50 TSH 1.110 mlU/mL (0.270-4.200) 01/18/22 09:50 Last Vital Signs Temp 98.5 F 01/18/22 18:56 Pulse 64 01/18/22 18:56 Resp 18 01/18/22 18:56 BP 123/75 01/18/22 18:56 Pulse Ox 99 01/18/22 18:56
[2022-01-19] MEDS: VENLAFAXINE XR 75 MG CAP PO SCH (10:15)
[2022-01-19] MEDS: amLODIPine 10 MG TAB PO SCH (10:15)
[2022-01-19] MEDS: DOLUTEGRAVIR 50 MG TAB PO SCH (10:16)
[2022-01-19] MEDS: hydroCHLOROthiazide 25 MG TAB PO SCH (10:17)
[2022-01-19] MEDS: metFORMIN 500 MG TAB PO SCH (10:17)
[2022-01-19] MEDS: CETIRIZINE 10 MG TAB PO SCH (10:26)
[2022-01-19 14:05] LABS: Calcium 9.1 mg/dL (8.4-10.2)
[2022-01-19] MEDS: QUEtiapine 100 MG TAB PO SCH (21:10)
[2022-01-20] MEDS: LEVOTHYROXINE 100 MCG TAB PO SCH (06:24)
[2022-01-20] MEDS: amLODIPine 10 MG TAB PO SCH (09:20)
[2022-01-20] MEDS: CETIRIZINE 10 MG TAB PO SCH (09:20)
[2022-01-20] MEDS: hydroCHLOROthiazide 25 MG TAB PO SCH (09:20)
[2022-01-20] MEDS: DOLUTEGRAVIR 50 MG TAB PO SCH (09:20)
[2022-01-20] MEDS: VENLAFAXINE XR 75 MG CAP PO SCH (09:20)
[2022-01-20] MEDS: metFORMIN 500 MG TAB PO SCH (09:21)
--- NOTE | 2022-01-20 10:55 | Progress Note ---
Subjective Date of service: 01/20/22 Principal diagnosis: Schizoaffective Subjective Comment: The patient was seen today. She says she feels alright but still feels "a little suicidal and homicidal." The patient says she hears voices telling her things she can't make out. REVIEW OF SYSTEMS Constitutional: Negative for weight loss ENT: Negative for stridor Respiratory: Negative for cough or hemoptysis All other systems reviewed and are negative MENTAL STATUS General Appearance and Behavior: age appropriate, good eye contact, cooperative, calm Cooperation: Cooperative Psychomotor Behavior: within normal limits Mood: Depressed Affect and affective range: Congruent with stated mood Thought Process: goal oriented Thought Content: reality oriented Speech: Normal volume and Regular rate and rhythm Suicidal Ideation: Yes Homicidal Ideation: Yes Hallucinations: Yes Delusions: None elicited Impulse Control: Limited Insight and Judgment: Limited Memory: Limited Attention: Attentive Orientation: alert and oriented Diagnosis: Schizoaffective Disorder Treatment Plan Patient will be admitted for inpatient psychiatric evaluation, medication adjustment and close monitoring The patient's behavior, mood, sleep and appetite will be closely monitored. Patient will be enrolled in individual and group therapeutic sessions and encouraged to attend. Patient will be provided with a safe and structured environment. Patient's physical health needs will be addressed by the Hospitalist. Hospitalist Consulted Labs including CBC, CMP, Lipid profile and Hemoglobin A1C ordered Social Assessment will be completed and the Medical Advisor will work with patient and family to ensure a suitable and safe disposition Medication adjustment will be made as clinically indicated Usual Wellness Anglican/Preservation: Start Seroquel 25mg po qam in addition to nightly dose The patient agreed on the treatment plan, understood the risk, benefit, alternative treatment, potential consequence of no treatment, and gave informed consent. Legal Status: voluntary Reaction to Hospitalization: Accepting Case staffed with Dr. Carvalho Medications and Allergies Allergies Allergy/AdvReac Type Severity Reaction Status Date / Time cat dander Allergy Unknown Verified 01/16/22 20:32 No Known Drug Allergies Allergy Unknown Verified 01/16/22 20:32 Dust Allergy Unknown Uncoded 01/16/22 20:32 Home Medications Medication Instructions Recorded Confirmed Last Taken Type Amlodipine Besylate [Norvasc] 10 mg PO DAILY 01/16/22 01/16/22 Unknown History Levothyroxine [Synthroid] 100 mcg PO QAM 01/16/22 01/16/22 Unknown History Losartan [Cozaar] 50 mg PO QDAY 01/16/22 01/16/22 Unknown History QUEtiapine [SEROquel] 100 mg PO HS 01/16/22 01/16/22 Unknown History Venlafaxine HCl [Effexor Xr] 150 mg PO DAILY 01/16/22 01/16/22 Unknown History hydroCHLOROthiazide [HCTZ] 25 mg PO QDAY 01/16/22 01/16/22 Unknown History Apixaban [Eliquis] 5 mg PO UNK 01/17/22 01/17/22 Unknown History Cetirizine HCl [Allergy] 10 mg PO DAILY 01/17/22 01/17/22 Unknown History Diclofenac 1% [Diclofenac 1% 20 applic TP QID 01/17/22 01/17/22 Unknown History topical gel] Dolutegravir Sodium/Lamivudine 1 tab PO DAILY 01/17/22 01/17/22 Unknown History [Dovato 50-300 mg Tablet] Dolutegravir Sodium/Lamivudine 1 tab PO DAILY 01/17/22 01/17/22 Unknown History [Dovato 50-300 mg Tablet] Dolutegravir [Tivicay] 1 tab PO DAILY 01/17/22 01/17/22 Unknown History Gabapentin 300 mg PO UNK 01/17/22 01/17/22 Unknown History Meloxicam [Mobic] 15 mg PO QDAY 01/17/22 01/17/22 Unknown History Oxycodone HCl/Acetaminophen 1 each PO Q6H MDD pain 01/17/22 01/17/22 10/13/21 History [Oxycodone-Acetaminophen 10-325] lamiVUDine [Lamivudine] 2 tab PO DAILY 01/17/22 01/17/22 Unknown History metFORMIN [Glucophage] 500 mg PO UNK 01/17/22 01/17/22 Unknown History Active Meds: Active Medications Acetaminophen (Acetaminophen 325 Mg Tab) 650 mg PO Q6H PRN PRN Reason: Pain, Mild (1-3) Last Admin: 01/17/22 12:42 Dose: 650 mg Amlodipine Besylate (Amlodipine 10 Mg Tab) 10 mg PO DAILY [facility] Last Admin: 01/20/22 09:20 Dose: 10 mg Cetirizine HCl (Cetirizine 10 Mg Tab) 10 mg PO DAILY [facility] Last Admin: 01/20/22 09:20 Dose: 10 mg Dolutegravir Sodium (Dolutegravir 50 Mg Tab) 50 mg PO DAILY [facility] Last Admin: 01/20/22 09:20 Dose: 50 mg Hydrochlorothiazide (Hydrochlorothiazide 25 Mg Tab) 25 mg PO QDAY [facility] Last Admin: 01/20/22 09:20 Dose: 25 mg Lamivudine (Lamivudine 150 Mg Tab) 300 mg PO QDAY [facility] Last Admin: 01/20/22 09:20 Dose: 300 mg Levothyroxine Sodium (Levothyroxine 100 Mcg Tab) 100 mcg PO 0600 [facility] Last Admin: 01/20/22 06:24 Dose: 100 mcg Metformin HCl (Metformin 500 Mg Tab) 500 mg PO QDDIAB [facility] Last Admin: 01/20/22 09:21 Dose: 500 mg Quetiapine Fumarate (Quetiapine 100 Mg Tab) 100 mg PO HS [facility] Last Admin: 01/19/22 21:10 Dose: 100 mg Venlafaxine HCl (Venlafaxine Xr 75 Mg Cap) 150 mg PO QDAY [facility] Last Admin: 01/20/22 09:20 Dose: 150 mg Results - Results Labs/Vitals: Laboratory Last Values WBC 6.3 K/mm3 (4.5-11.0) 01/18/22 09:50 RBC 3.62 M/mm3 (3.65-5.03) L 01/18/22 09:50 Hgb 10.6 gm/dl (10.1-14.3) 01/18/22 09:50 Hct 31.7 % (30.3-42.9) 01/18/22 09:50 MCV 88 fl (79-97) 01/18/22 09:50 MCH 29 pg (28-32) 01/18/22 09:50 MCHC 34 % (30-34) 01/18/22 09:50 RDW 14.0 % (13.2-15.2) 01/18/22 09:50 Plt Count 223 K/mm3 (140-440) 01/18/22 09:50 Lymph % (Auto) 30.1 % (13.4-35.0) 01/18/22 09:50 [place] % (Auto) 8.7 % (0.0-7.3) H 01/18/22 09:50 Eos % (Auto) 2.4 % (0.0-4.3) 01/18/22 09:50 Baso % (Auto) 0.8 % (0.0-1.8) 01/18/22 09:50 Lymph # (Auto) 1.9 K/mm3 (1.2-5.4) 01/18/22 09:50 [place] # (Auto) 0.5 K/mm3 (0.0-0.8) 01/18/22 09:50 Eos # (Auto) 0.2 K/mm3 (0.0-0.4) 01/18/22 09:50 Baso # (Auto) 0.0 K/mm3 (0.0-0.1) 01/18/22 09:50 Seg Neutrophils % 58.0 % (40.0-70.0) 01/18/22 09:50 Seg Neutrophils # 3.6 K/mm3 (1.8-7.7) 01/18/22 09:50 Sodium 145 mmol/L (137-145) 01/19/22 13:32 Potassium 4.0 mmol/L (3.6-5.0) 01/19/22 13:32 Chloride 105.1 mmol/L (98-107) 01/19/22 13:32 Carbon Dioxide 31 mmol/L (22-30) H 01/19/22 13:32 Anion Gap 13 mmol/L 01/19/22 13:32 BUN 26 mg/dL (7-17) H 01/19/22 13:32 Creatinine 1.6 mg/dL (0.6-1.2) H 01/19/22 13:32 Estimated GFR 40 ml/min 01/19/22 13:32 BUN/Creatinine Ratio 16 % 01/19/22 13:32 Glucose 114 mg/dL (65-100) H 01/19/22 13:32 POC Glucose 84 mg/dL (70-105) 01/20/22 06:30 Hemoglobin A1c 6.4 % (4-6) H 01/18/22 09:50 Calcium 9.1 mg/dL (8.4-10.2) 01/19/22 13:32 Total Bilirubin 0.30 mg/dL (0.1-1.2) 01/18/22 09:50 AST 12 units/L (5-40) 01/18/22 09:50 ALT 11 units/L (7-56) 01/18/22 09:50 Alkaline Phosphatase 88 units/L (35-129) 01/18/22 09:50 Total Protein 6.6 g/dL (6.3-8.2) 01/18/22 09:50 Albumin 4.1 g/dL (3.9-5) 01/18/22 09:50 Albumin/Globulin Ratio 1.6 % 01/18/22 09:50 Triglycerides 60 mg/dL (2-149) 01/18/22 09:50 Cholesterol 177 mg/dL (50-199) 01/18/22 09:50 LDL Cholesterol Direct 77 mg/dL (50-130) 01/18/22 09:50 HDL Cholesterol 85 mg/dL (40-59) H 01/18/22 09:50 Cholesterol/HDL Ratio 2.08 % 01/18/22 09:50 TSH 1.110 mlU/mL (0.270-4.200) 01/18/22 09:50 Last Vital Signs Temp 97.8 F 01/20/22 07:52 Pulse 54 L 01/20/22 07:52 Resp 16 01/20/22 07:52 BP 118/70 01/20/22 07:52 Pulse Ox 99 01/20/22 07:52
--- NOTE | 2022-01-20 14:31 | Progress Note ---
Assessment and Plan Assessment and plan: Assessment and Plan: #Suicidal ideation #Anxiety disorder #Schizophrenia #Hypertension #Type 2 diabetes #Chronic kidney disease, Stage 3 #Cocaine use -+15 minutes behavioral health counseling on drug abstinence #HIV history #Hepatitis B #Hypothyroidism #Advance care planning Disease education conducted, care plan discussed, diagnoses discussed, prognosis discussed, patient is full code, patient acknowledges understanding and agree with care plan, +30 minutes. Plan -Psychiatric medication management per inpatient psych service -Monitor blood pressure daily -Accu-Cheks ACHS - labs reviewed: Cr: 1.5 recheck BMP reveals Cr: 1.6 Likely chronic. -Home blood pressure medication: Norvasc, hydrochlorothiazide Home thyroid medication: Levothyroxine Home diabetes medication metformin. - Home HIV medication: Tivicay - home Hep B medication: Epivir IMS will continue to follow while patient in hospital. History Interval history: No complaints this AM. Hospitalist Physical - Physical exam Narrative exam: Physical Exam: VITAL SIGNS: Reviewed. GENERAL: The patient appears normally developed, Vital signs as documented. Obese HEAD: No signs of head trauma. EYES: Pupils are equal. Extraocular motions intact. EARS: Hearing grossly intact. MOUTH: Oropharynx is normal. NECK: No adenopathy, no JVD. CHEST: Chest with clear breath sounds bilaterally. No wheezes, rales, or rhonchi. CARDIAC: Regular rate and rhythm. S1 and S2, without murmurs, gallops, or rubs. VASCULAR: No Edema. Peripheral pulses normal and equal in all extremities. ABDOMEN: Soft, non tender and non distended. No rebound or guarding, and no masses palpated. Bowel Sounds normal. MUSCULOSKELETAL: Good range of motion of all major joints. Extremities without clubbing, cyanosis or edema. NEUROLOGIC EXAM: Alert and oriented x 4. no focal sensory or strength deficits. PSYCHIATRIC: Mood normal. SKIN: detail exam as documented in skin assessment - Constitutional Vitals: Temp Pulse Resp BP Pulse Ox 97.8 F 54 L 16 118/70 99 01/20/22 07:52 01/20/22 07:52 01/20/22 07:52 01/20/22 07:52 01/20/22 07:52 Results - Labs CBC & Chem 7: 01/18/22 09:50 01/19/22 13:32 Labs: Laboratory Last Values WBC 6.3 K/mm3 (4.5-11.0) 01/18/22 09:50 RBC 3.62 M/mm3 (3.65-5.03) L 01/18/22 09:50 Hgb 10.6 gm/dl (10.1-14.3) 01/18/22 09:50 Hct 31.7 % (30.3-42.9) 01/18/22 09:50 MCV 88 fl (79-97) 01/18/22 09:50 MCH 29 pg (28-32) 01/18/22 09:50 MCHC 34 % (30-34) 01/18/22 09:50 RDW 14.0 % (13.2-15.2) 01/18/22 09:50 Plt Count 223 K/mm3 (140-440) 01/18/22 09:50 Lymph % (Auto) 30.1 % (13.4-35.0) 01/18/22 09:50 [place] % (Auto) 8.7 % (0.0-7.3) H 01/18/22 09:50 Eos % (Auto) 2.4 % (0.0-4.3) 01/18/22 09:50 Baso % (Auto) 0.8 % (0.0-1.8) 01/18/22 09:50 Lymph # (Auto) 1.9 K/mm3 (1.2-5.4) 01/18/22 09:50 [place] # (Auto) 0.5 K/mm3 (0.0-0.8) 01/18/22 09:50 Eos # (Auto) 0.2 K/mm3 (0.0-0.4) 01/18/22 09:50 Baso # (Auto) 0.0 K/mm3 (0.0-0.1) 01/18/22 09:50 Seg Neutrophils % 58.0 % (40.0-70.0) 01/18/22 09:50 Seg Neutrophils # 3.6 K/mm3 (1.8-7.7) 01/18/22 09:50 Sodium 145 mmol/L (137-145) 01/19/22 13:32 Potassium 4.0 mmol/L (3.6-5.0) 01/19/22 13:32 Chloride 105.1 mmol/L (98-107) 01/19/22 13:32 Carbon Dioxide 31 mmol/L (22-30) H 01/19/22 13:32 Anion Gap 13 mmol/L 01/19/22 13:32 BUN 26 mg/dL (7-17) H 01/19/22 13:32 Creatinine 1.6 mg/dL (0.6-1.2) H 01/19/22 13:32 Estimated GFR 40 ml/min 01/19/22 13:32 BUN/Creatinine Ratio 16 % 01/19/22 13:32 Glucose 114 mg/dL (65-100) H 01/19/22 13:32 POC Glucose 84 mg/dL (70-105) 01/20/22 06:30 Hemoglobin A1c 6.4 % (4-6) H 01/18/22 09:50 Calcium 9.1 mg/dL (8.4-10.2) 01/19/22 13:32 Total Bilirubin 0.30 mg/dL (0.1-1.2) 01/18/22 09:50 AST 12 units/L (5-40) 01/18/22 09:50 ALT 11 units/L (7-56) 01/18/22 09:50 Alkaline Phosphatase 88 units/L (35-129) 01/18/22 09:50 Total Protein 6.6 g/dL (6.3-8.2) 01/18/22 09:50 Albumin 4.1 g/dL (3.9-5) 01/18/22 09:50 Albumin/Globulin Ratio 1.6 % 01/18/22 09:50 Triglycerides 60 mg/dL (2-149) 01/18/22 09:50 Cholesterol 177 mg/dL (50-199) 01/18/22 09:50 LDL Cholesterol Direct 77 mg/dL (50-130) 01/18/22 09:50 HDL Cholesterol 85 mg/dL (40-59) H 01/18/22 09:50 Cholesterol/HDL Ratio 2.08 % 01/18/22 09:50 TSH 1.110 mlU/mL (0.270-4.200) 01/18/22 09:50 [place]/IV: Voiding Method Toilet Active Medications - Current Medications Current Medications: Generic Name Dose Route Start Last Admin Trade Name Freq PRN Reason Stop Dose Admin Acetaminophen 650 mg 01/17/22 11:30 01/17/22 12:42 Acetaminophen 325 Mg Tab PO 650 mg Q6H PRN Administration Pain, Mild (1-3) Amlodipine Besylate 10 mg 01/18/22 10:00 01/20/22 09:20 Amlodipine 10 Mg Tab PO 10 mg DAILY NOHEMI Administration Cetirizine HCl 10 mg 01/17/22 11:00 01/20/22 09:20 Cetirizine 10 Mg Tab PO 10 mg DAILY NOHEMI Administration Dolutegravir Sodium 50 mg 01/17/22 11:00 01/20/22 09:20 Dolutegravir 50 Mg Tab PO 50 mg DAILY NOHEMI Administration Hydrochlorothiazide 25 mg 01/17/22 11:00 01/20/22 09:20 Hydrochlorothiazide 25 Mg Tab PO 25 mg QDAY NOHEMI Administration Lamivudine 300 mg 01/17/22 11:00 01/20/22 09:20 Lamivudine 150 Mg Tab PO 300 mg QDAY NOHEMI Administration Levothyroxine Sodium 100 mcg 01/19/22 06:00 01/20/22 06:24 Levothyroxine 100 Mcg Tab PO 100 mcg 0600 NOHEMI Administration Metformin HCl 500 mg 01/19/22 08:00 01/20/22 09:21 Metformin 500 Mg Tab PO 500 mg QDDIAB NOHEMI Administration Quetiapine Fumarate 100 mg 01/17/22 22:00 01/19/22 21:10 Quetiapine 100 Mg Tab PO 100 mg HS NOHEMI Administration Quetiapine Fumarate 25 mg 01/21/22 11:00 Quetiapine 25 Mg Tab PO DAILY NOHEMI Venlafaxine HCl 150 mg 01/17/22 10:15 01/20/22 09:20 Venlafaxine Xr 75 Mg Cap PO 150 mg QDAY NOHEMI Administration
--- NOTE | 2022-01-20 15:19 | XRay Report ---
CHEST 1 VIEW 01/20/2022 12:47 PM INDICATION / CLINICAL INFORMATION: r/o TB. COMPARISON: None available. FINDINGS: SUPPORT DEVICES: None. HEART / MEDIASTINUM: No significant abnormality. LUNGS / PLEURA: No significant pulmonary or pleural abnormality. No pneumothorax. ADDITIONAL FINDINGS: None IMPRESSION: 1. No acute chest process. Signer Name: Luther Mendoza MD Signed: 01/20/2022 3:14 PM Workstation Name: Why Not Give Back
[2022-01-20] MEDS: QUEtiapine 100 MG TAB PO SCH (21:09)
[2022-01-21] MEDS: LEVOTHYROXINE 100 MCG TAB PO SCH (06:11)
[2022-01-21] MEDS: hydroCHLOROthiazide 25 MG TAB PO SCH ×2 (08:24→10:33)
[2022-01-21] MEDS: CETIRIZINE 10 MG TAB PO SCH ×2 (08:25→10:33)
[2022-01-21] MEDS: metFORMIN 500 MG TAB PO SCH (08:25)
[2022-01-21] MEDS: amLODIPine 10 MG TAB PO SCH ×2 (08:25→10:32)
[2022-01-21] MEDS: DOLUTEGRAVIR 50 MG TAB PO SCH ×2 (08:25→10:33)
[2022-01-21] MEDS: VENLAFAXINE XR 75 MG CAP PO SCH ×2 (08:25→10:33)
--- NOTE | 2022-01-21 08:51 | Progress Note ---
Subjective Date of service: 01/21/22 Principal diagnosis: Schizoaffective Subjective Comment: The patient was seen today. She says she is feeling alright. She says she slept good. She denies SI/HI or hallucinations of any kind. REVIEW OF SYSTEMS Constitutional: Negative for weight loss ENT: Negative for stridor Respiratory: Negative for cough or hemoptysis All other systems reviewed and are negative MENTAL STATUS General Appearance and Behavior: age appropriate, good eye contact, cooperative, calm Cooperation: Cooperative Psychomotor Behavior: within normal limits Mood: Depressed Affect and affective range: Congruent with stated mood Thought Process: goal oriented Thought Content: reality oriented Speech: Normal volume and Regular rate and rhythm Suicidal Ideation: Yes Homicidal Ideation: Yes Hallucinations: Yes Delusions: None elicited Impulse Control: Limited Insight and Judgment: Limited Memory: Limited Attention: Attentive Orientation: alert and oriented Diagnosis: Schizoaffective Disorder Treatment Plan Patient will be admitted for inpatient psychiatric evaluation, medication adjustment and close monitoring The patient's behavior, mood, sleep and appetite will be closely monitored. Patient will be enrolled in individual and group therapeutic sessions and encouraged to attend. Patient will be provided with a safe and structured environment. Patient's physical health needs will be addressed by the Hospitalist. Hospitalist Consulted Labs including CBC, CMP, Lipid profile and Hemoglobin A1C ordered Social Assessment will be completed and the Electric Mule Operator will work with patient and family to ensure a suitable and safe disposition Medication adjustment will be made as clinically indicated Usual Wellness Yarsani/Preservation: Start Seroquel 25mg po qam in addition to nightly dose yesterday No changes made today The patient agreed on the treatment plan, understood the risk, benefit, alternative treatment, potential consequence of no treatment, and gave informed consent. Legal Status: voluntary Reaction to Hospitalization: Accepting Case staffed with Dr. Carvalho Medications and Allergies Allergies Allergy/AdvReac Type Severity Reaction Status Date / Time cat dander Allergy Unknown Verified 01/16/22 20:32 No Known Drug Allergies Allergy Unknown Verified 01/16/22 20:32 Dust Allergy Unknown Uncoded 01/16/22 20:32 Home Medications Medication Instructions Recorded Confirmed Last Taken Type Amlodipine Besylate [Norvasc] 10 mg PO DAILY 01/16/22 01/16/22 Unknown History Levothyroxine [Synthroid] 100 mcg PO QAM 01/16/22 01/16/22 Unknown History Losartan [Cozaar] 50 mg PO QDAY 01/16/22 01/16/22 Unknown History QUEtiapine [SEROquel] 100 mg PO HS 01/16/22 01/16/22 Unknown History Venlafaxine HCl [Effexor Xr] 150 mg PO DAILY 01/16/22 01/16/22 Unknown History hydroCHLOROthiazide [HCTZ] 25 mg PO QDAY 01/16/22 01/16/22 Unknown History Apixaban [Eliquis] 5 mg PO UNK 01/17/22 01/17/22 Unknown History Cetirizine HCl [Allergy] 10 mg PO DAILY 01/17/22 01/17/22 Unknown History Diclofenac 1% [Diclofenac 1% 20 applic TP QID 01/17/22 01/17/22 Unknown History topical gel] Dolutegravir Sodium/Lamivudine 1 tab PO DAILY 01/17/22 01/17/22 Unknown History [Dovato 50-300 mg Tablet] Dolutegravir Sodium/Lamivudine 1 tab PO DAILY 01/17/22 01/17/22 Unknown History [Dovato 50-300 mg Tablet] Dolutegravir [Tivicay] 1 tab PO DAILY 01/17/22 01/17/22 Unknown History Gabapentin 300 mg PO UNK 01/17/22 01/17/22 Unknown History Meloxicam [Mobic] 15 mg PO QDAY 01/17/22 01/17/22 Unknown History Oxycodone HCl/Acetaminophen 1 each PO Q6H MDD pain 01/17/22 01/17/22 10/13/21 History [Oxycodone-Acetaminophen 10-325] lamiVUDine [Lamivudine] 2 tab PO DAILY 01/17/22 01/17/22 Unknown History metFORMIN [Glucophage] 500 mg PO UNK 01/17/22 01/17/22 Unknown History Active Meds: Active Medications Acetaminophen (Acetaminophen 325 Mg Tab) 650 mg PO Q6H PRN PRN Reason: Pain, Mild (1-3) Last Admin: 01/17/22 12:42 Dose: 650 mg Amlodipine Besylate (Amlodipine 10 Mg Tab) 10 mg PO DAILY [facility] Last Admin: 01/21/22 08:25 Dose: 10 mg Cetirizine HCl (Cetirizine 10 Mg Tab) 10 mg PO DAILY [facility] Last Admin: 01/21/22 08:25 Dose: 10 mg Dolutegravir Sodium (Dolutegravir 50 Mg Tab) 50 mg PO DAILY [facility] Last Admin: 01/21/22 08:25 Dose: 50 mg Hydrochlorothiazide (Hydrochlorothiazide 25 Mg Tab) 25 mg PO QDAY [facility] Last Admin: 01/21/22 08:24 Dose: 25 mg Lamivudine (Lamivudine 150 Mg Tab) 300 mg PO QDAY [facility] Last Admin: 01/21/22 08:25 Dose: 300 mg Levothyroxine Sodium (Levothyroxine 100 Mcg Tab) 100 mcg PO 0600 [facility] Last Admin: 01/21/22 06:11 Dose: 100 mcg Metformin HCl (Metformin 500 Mg Tab) 500 mg PO QDDIAB [facility] Last Admin: 01/21/22 08:25 Dose: 500 mg Quetiapine Fumarate (Quetiapine 100 Mg Tab) 100 mg PO HS [facility] Last Admin: 01/20/22 21:09 Dose: 100 mg Quetiapine Fumarate (Quetiapine 25 Mg Tab) 25 mg PO DAILY [facility] Venlafaxine HCl (Venlafaxine Xr 75 Mg Cap) 150 mg PO QDAY [facility] Last Admin: 01/21/22 08:25 Dose: 150 mg Results - Results Labs/Vitals: Laboratory Last Values WBC 6.3 K/mm3 (4.5-11.0) 01/18/22 09:50 RBC 3.62 M/mm3 (3.65-5.03) L 01/18/22 09:50 Hgb 10.6 gm/dl (10.1-14.3) 01/18/22 09:50 Hct 31.7 % (30.3-42.9) 01/18/22 09:50 MCV 88 fl (79-97) 01/18/22 09:50 MCH 29 pg (28-32) 01/18/22 09:50 MCHC 34 % (30-34) 01/18/22 09:50 RDW 14.0 % (13.2-15.2) 01/18/22 09:50 Plt Count 223 K/mm3 (140-440) 01/18/22 09:50 Lymph % (Auto) 30.1 % (13.4-35.0) 01/18/22 09:50 [place] % (Auto) 8.7 % (0.0-7.3) H 01/18/22 09:50 Eos % (Auto) 2.4 % (0.0-4.3) 01/18/22 09:50 Baso % (Auto) 0.8 % (0.0-1.8) 01/18/22 09:50 Lymph # (Auto) 1.9 K/mm3 (1.2-5.4) 01/18/22 09:50 [place] # (Auto) 0.5 K/mm3 (0.0-0.8) 01/18/22 09:50 Eos # (Auto) 0.2 K/mm3 (0.0-0.4) 01/18/22 09:50 Baso # (Auto) 0.0 K/mm3 (0.0-0.1) 01/18/22 09:50 Seg Neutrophils % 58.0 % (40.0-70.0) 01/18/22 09:50 Seg Neutrophils # 3.6 K/mm3 (1.8-7.7) 01/18/22 09:50 Sodium 145 mmol/L (137-145) 01/19/22 13:32 Potassium 4.0 mmol/L (3.6-5.0) 01/19/22 13:32 Chloride 105.1 mmol/L (98-107) 01/19/22 13:32 Carbon Dioxide 31 mmol/L (22-30) H 01/19/22 13:32 Anion Gap 13 mmol/L 01/19/22 13:32 BUN 26 mg/dL (7-17) H 01/19/22 13:32 Creatinine 1.6 mg/dL (0.6-1.2) H 01/19/22 13:32 Estimated GFR 40 ml/min 01/19/22 13:32 BUN/Creatinine Ratio 16 % 01/19/22 13:32 Glucose 114 mg/dL (65-100) H 01/19/22 13:32 POC Glucose 82 mg/dL (70-105) 01/21/22 06:30 Hemoglobin A1c 6.4 % (4-6) H 01/18/22 09:50 Calcium 9.1 mg/dL (8.4-10.2) 01/19/22 13:32 Total Bilirubin 0.30 mg/dL (0.1-1.2) 01/18/22 09:50 AST 12 units/L (5-40) 01/18/22 09:50 ALT 11 units/L (7-56) 01/18/22 09:50 Alkaline Phosphatase 88 units/L (35-129) 01/18/22 09:50 Total Protein 6.6 g/dL (6.3-8.2) 01/18/22 09:50 Albumin 4.1 g/dL (3.9-5) 01/18/22 09:50 Albumin/Globulin Ratio 1.6 % 01/18/22 09:50 Triglycerides 60 mg/dL (2-149) 01/18/22 09:50 Cholesterol 177 mg/dL (50-199) 01/18/22 09:50 LDL Cholesterol Direct 77 mg/dL (50-130) 01/18/22 09:50 HDL Cholesterol 85 mg/dL (40-59) H 01/18/22 09:50 Cholesterol/HDL Ratio 2.08 % 01/18/22 09:50 TSH 1.110 mlU/mL (0.270-4.200) 01/18/22 09:50 Syphilis IgG/IgM Ab Nonreactive (NonReactive) 01/20/22 13:27 SARS-CoV-2 (PCR) Negative (Negative) 01/20/22 14:00 Last Vital Signs Temp 97.8 F 01/21/22 07:26 Pulse 48 L 01/21/22 08:25 Resp 18 01/21/22 07:26 BP 121/72 01/21/22 08:25 Pulse Ox 97 01/21/22 07:26
--- NOTE | 2022-01-21 08:54 | Progress Note ---
Assessment and Plan Assessment and plan: Assessment and Plan: #Suicidal ideation #Anxiety disorder #Schizophrenia #Hypertension #Type 2 diabetes #Chronic kidney disease, Stage 3 #Cocaine use -+15 minutes behavioral health counseling on drug abstinence #HIV history #Hepatitis B #Hypothyroidism #Advance care planning Disease education conducted, care plan discussed, diagnoses discussed, prognosis discussed, patient is full code, patient acknowledges understanding and agree with care plan, +30 minutes. Plan -Psychiatric medication management per inpatient psych service -Monitor blood pressure daily -Accu-Cheks ACHS - labs reviewed: Cr: 1.5 recheck BMP reveals Cr: 1.6 Likely chronic. -Home blood pressure medication: Norvasc, hydrochlorothiazide Home thyroid medication: Levothyroxine Home diabetes medication metformin. - Home HIV medication: Tivicay - home Hep B medication: Epivir IMS will continue to follow while patient in hospital. History Interval history: NO acute complaints or overnight events. Hospitalist Physical - Physical exam Narrative exam: Physical Exam: VITAL SIGNS: Reviewed. GENERAL: The patient appears normally developed, Vital signs as documented. Obese HEAD: No signs of head trauma. EYES: Pupils are equal. Extraocular motions intact. EARS: Hearing grossly intact. MOUTH: Oropharynx is normal. NECK: No adenopathy, no JVD. CHEST: Chest with clear breath sounds bilaterally. No wheezes, rales, or rhonchi. CARDIAC: Regular rate and rhythm. S1 and S2, without murmurs, gallops, or rubs. VASCULAR: No Edema. Peripheral pulses normal and equal in all extremities. ABDOMEN: Soft, non tender and non distended. No rebound or guarding, and no masses palpated. Bowel Sounds normal. MUSCULOSKELETAL: Good range of motion of all major joints. Extremities without clubbing, cyanosis or edema. NEUROLOGIC EXAM: Alert and oriented x 4. no focal sensory or strength deficits. PSYCHIATRIC: Mood normal. SKIN: detail exam as documented in skin assessment - Constitutional Vitals: Temp Pulse Resp BP Pulse Ox 97.8 F 48 L 18 121/72 97 01/21/22 07:26 01/21/22 08:25 01/21/22 07:26 01/21/22 08:25 01/21/22 07:26 Results - Labs CBC & Chem 7: 01/18/22 09:50 01/19/22 13:32 Labs: Laboratory Last Values WBC 6.3 K/mm3 (4.5-11.0) 01/18/22 09:50 RBC 3.62 M/mm3 (3.65-5.03) L 01/18/22 09:50 Hgb 10.6 gm/dl (10.1-14.3) 01/18/22 09:50 Hct 31.7 % (30.3-42.9) 01/18/22 09:50 MCV 88 fl (79-97) 01/18/22 09:50 MCH 29 pg (28-32) 01/18/22 09:50 MCHC 34 % (30-34) 01/18/22 09:50 RDW 14.0 % (13.2-15.2) 01/18/22 09:50 Plt Count 223 K/mm3 (140-440) 01/18/22 09:50 Lymph % (Auto) 30.1 % (13.4-35.0) 01/18/22 09:50 [place] % (Auto) 8.7 % (0.0-7.3) H 01/18/22 09:50 Eos % (Auto) 2.4 % (0.0-4.3) 01/18/22 09:50 Baso % (Auto) 0.8 % (0.0-1.8) 01/18/22 09:50 Lymph # (Auto) 1.9 K/mm3 (1.2-5.4) 01/18/22 09:50 [place] # (Auto) 0.5 K/mm3 (0.0-0.8) 01/18/22 09:50 Eos # (Auto) 0.2 K/mm3 (0.0-0.4) 01/18/22 09:50 Baso # (Auto) 0.0 K/mm3 (0.0-0.1) 01/18/22 09:50 Seg Neutrophils % 58.0 % (40.0-70.0) 01/18/22 09:50 Seg Neutrophils # 3.6 K/mm3 (1.8-7.7) 01/18/22 09:50 Sodium 145 mmol/L (137-145) 01/19/22 13:32 Potassium 4.0 mmol/L (3.6-5.0) 01/19/22 13:32 Chloride 105.1 mmol/L (98-107) 01/19/22 13:32 Carbon Dioxide 31 mmol/L (22-30) H 01/19/22 13:32 Anion Gap 13 mmol/L 01/19/22 13:32 BUN 26 mg/dL (7-17) H 01/19/22 13:32 Creatinine 1.6 mg/dL (0.6-1.2) H 01/19/22 13:32 Estimated GFR 40 ml/min 01/19/22 13:32 BUN/Creatinine Ratio 16 % 01/19/22 13:32 Glucose 114 mg/dL (65-100) H 01/19/22 13:32 POC Glucose 82 mg/dL (70-105) 01/21/22 06:30 Hemoglobin A1c 6.4 % (4-6) H 01/18/22 09:50 Calcium 9.1 mg/dL (8.4-10.2) 01/19/22 13:32 Total Bilirubin 0.30 mg/dL (0.1-1.2) 01/18/22 09:50 AST 12 units/L (5-40) 01/18/22 09:50 ALT 11 units/L (7-56) 01/18/22 09:50 Alkaline Phosphatase 88 units/L (35-129) 01/18/22 09:50 Total Protein 6.6 g/dL (6.3-8.2) 01/18/22 09:50 Albumin 4.1 g/dL (3.9-5) 01/18/22 09:50 Albumin/Globulin Ratio 1.6 % 01/18/22 09:50 Triglycerides 60 mg/dL (2-149) 01/18/22 09:50 Cholesterol 177 mg/dL (50-199) 01/18/22 09:50 LDL Cholesterol Direct 77 mg/dL (50-130) 01/18/22 09:50 HDL Cholesterol 85 mg/dL (40-59) H 01/18/22 09:50 Cholesterol/HDL Ratio 2.08 % 01/18/22 09:50 TSH 1.110 mlU/mL (0.270-4.200) 01/18/22 09:50 Syphilis IgG/IgM Ab Nonreactive (NonReactive) 01/20/22 13:27 SARS-CoV-2 (PCR) Negative (Negative) 01/20/22 14:00 [place]/IV: Voiding Method Toilet Active Medications - Current Medications Current Medications: Generic Name Dose Route Start Last Admin Trade Name Matiasq PRN Reason Stop Dose Admin Acetaminophen 650 mg 01/17/22 11:30 01/17/22 12:42 Acetaminophen 325 Mg Tab PO 650 mg Q6H PRN Administration Pain, Mild (1-3) Amlodipine Besylate 10 mg 01/18/22 10:00 01/21/22 08:25 Amlodipine 10 Mg Tab PO 10 mg DAILY NOHEMI Administration Cetirizine HCl 10 mg 01/17/22 11:00 01/21/22 08:25 Cetirizine 10 Mg Tab PO 10 mg DAILY NOHEMI Administration Dolutegravir Sodium 50 mg 01/17/22 11:00 01/21/22 08:25 Dolutegravir 50 Mg Tab PO 50 mg DAILY NOHEMI Administration Hydrochlorothiazide 25 mg 01/17/22 11:00 01/21/22 08:24 Hydrochlorothiazide 25 Mg Tab PO 25 mg QDAY NOHEMI Administration Lamivudine 300 mg 01/17/22 11:00 01/21/22 08:25 Lamivudine 150 Mg Tab PO 300 mg QDAY NOHEMI Administration Levothyroxine Sodium 100 mcg 01/19/22 06:00 01/21/22 06:11 Levothyroxine 100 Mcg Tab PO 100 mcg 0600 NOHEMI Administration Metformin HCl 500 mg 01/19/22 08:00 01/21/22 08:25 Metformin 500 Mg Tab PO 500 mg QDDIAB NOHEMI Administration Quetiapine Fumarate 100 mg 01/17/22 22:00 01/20/22 21:09 Quetiapine 100 Mg Tab PO 100 mg HS NOHEMI Administration Quetiapine Fumarate 25 mg 01/21/22 11:00 Quetiapine 25 Mg Tab PO DAILY NOHEMI Venlafaxine HCl 150 mg 01/17/22 10:15 01/21/22 08:25 Venlafaxine Xr 75 Mg Cap PO 150 mg QDAY NOHEMI Administration
[2022-01-21] MEDS: QUEtiapine 25 MG TAB PO SCH (10:41)
[2022-01-21] MEDS: oxyCODONE /ACETAMINOPHEN 5-325MG TAB PO PRN (17:59)
[2022-01-21] MEDS: QUEtiapine 100 MG TAB PO SCH (21:16)
[2022-01-22] MEDS: LEVOTHYROXINE 100 MCG TAB PO SCH (06:02)
--- NOTE | 2022-01-22 09:20 | Progress Note ---
Assessment and Plan Assessment and plan: Assessment and Plan: #Suicidal ideation #Anxiety disorder #Schizophrenia #Hypertension #Type 2 diabetes #Chronic kidney disease, Stage 3 #Cocaine use -+15 minutes behavioral health counseling on drug abstinence #HIV history #Hepatitis B #Hypothyroidism #Advance care planning Disease education conducted, care plan discussed, diagnoses discussed, prognosis discussed, patient is full code, patient acknowledges understanding and agree with care plan, +30 minutes. Plan -Psychiatric medication management per inpatient psych service -Monitor blood pressure daily, low blood pressures noted today. -Accu-Cheks ACHS - labs reviewed: Cr: 1.5 recheck BMP reveals Cr: 1.6 Likely chronic. -d/c Home blood pressure medication: Norvasc, hydrochlorothiazide due to low blood pressure. Home thyroid medication: Levothyroxine Home diabetes medication metformin. - Home HIV medication: Tivicay - home Hep B medication: Epivir IMS will continue to follow while patient in hospital. History Interval history: Blood pressure low. No complaints otherwise. Hospitalist Physical - Physical exam Narrative exam: Physical Exam: VITAL SIGNS: Reviewed. GENERAL: The patient appears normally developed, Vital signs as documented. Obese HEAD: No signs of head trauma. EYES: Pupils are equal. Extraocular motions intact. EARS: Hearing grossly intact. MOUTH: Oropharynx is normal. NECK: No adenopathy, no JVD. CHEST: Chest with clear breath sounds bilaterally. No wheezes, rales, or rhonchi. CARDIAC: Regular rate and rhythm. S1 and S2, without murmurs, gallops, or rubs. VASCULAR: No Edema. Peripheral pulses normal and equal in all extremities. ABDOMEN: Soft, non tender and non distended. No rebound or guarding, and no masses palpated. Bowel Sounds normal. MUSCULOSKELETAL: Good range of motion of all major joints. Extremities without clubbing, cyanosis or edema. NEUROLOGIC EXAM: Alert and oriented x 4. no focal sensory or strength deficits. PSYCHIATRIC: Mood normal. SKIN: detail exam as documented in skin assessment - Constitutional Vitals: Temp Pulse Resp BP Pulse Ox 98.5 F 61 16 117/67 98 01/21/22 20:53 01/21/22 20:53 01/21/22 20:53 01/21/22 20:53 01/21/22 20:53 Results - Labs CBC & Chem 7: 01/18/22 09:50 01/19/22 13:32 Labs: Laboratory Last Values WBC 6.3 K/mm3 (4.5-11.0) 01/18/22 09:50 RBC 3.62 M/mm3 (3.65-5.03) L 01/18/22 09:50 Hgb 10.6 gm/dl (10.1-14.3) 01/18/22 09:50 Hct 31.7 % (30.3-42.9) 01/18/22 09:50 MCV 88 fl (79-97) 01/18/22 09:50 MCH 29 pg (28-32) 01/18/22 09:50 MCHC 34 % (30-34) 01/18/22 09:50 RDW 14.0 % (13.2-15.2) 01/18/22 09:50 Plt Count 223 K/mm3 (140-440) 01/18/22 09:50 Lymph % (Auto) 30.1 % (13.4-35.0) 01/18/22 09:50 [place] % (Auto) 8.7 % (0.0-7.3) H 01/18/22 09:50 Eos % (Auto) 2.4 % (0.0-4.3) 01/18/22 09:50 Baso % (Auto) 0.8 % (0.0-1.8) 01/18/22 09:50 Lymph # (Auto) 1.9 K/mm3 (1.2-5.4) 01/18/22 09:50 [place] # (Auto) 0.5 K/mm3 (0.0-0.8) 01/18/22 09:50 Eos # (Auto) 0.2 K/mm3 (0.0-0.4) 01/18/22 09:50 Baso # (Auto) 0.0 K/mm3 (0.0-0.1) 01/18/22 09:50 Seg Neutrophils % 58.0 % (40.0-70.0) 01/18/22 09:50 Seg Neutrophils # 3.6 K/mm3 (1.8-7.7) 01/18/22 09:50 Sodium 145 mmol/L (137-145) 01/19/22 13:32 Potassium 4.0 mmol/L (3.6-5.0) 01/19/22 13:32 Chloride 105.1 mmol/L (98-107) 01/19/22 13:32 Carbon Dioxide 31 mmol/L (22-30) H 01/19/22 13:32 Anion Gap 13 mmol/L 01/19/22 13:32 BUN 26 mg/dL (7-17) H 01/19/22 13:32 Creatinine 1.6 mg/dL (0.6-1.2) H 01/19/22 13:32 Estimated GFR 40 ml/min 01/19/22 13:32 BUN/Creatinine Ratio 16 % 01/19/22 13:32 Glucose 114 mg/dL (65-100) H 01/19/22 13:32 POC Glucose 91 mg/dL (70-105) 01/22/22 06:06 Hemoglobin A1c 6.4 % (4-6) H 01/18/22 09:50 Calcium 9.1 mg/dL (8.4-10.2) 01/19/22 13:32 Total Bilirubin 0.30 mg/dL (0.1-1.2) 01/18/22 09:50 AST 12 units/L (5-40) 01/18/22 09:50 ALT 11 units/L (7-56) 01/18/22 09:50 Alkaline Phosphatase 88 units/L (35-129) 01/18/22 09:50 Total Protein 6.6 g/dL (6.3-8.2) 01/18/22 09:50 Albumin 4.1 g/dL (3.9-5) 01/18/22 09:50 Albumin/Globulin Ratio 1.6 % 01/18/22 09:50 Triglycerides 60 mg/dL (2-149) 01/18/22 09:50 Cholesterol 177 mg/dL (50-199) 01/18/22 09:50 LDL Cholesterol Direct 77 mg/dL (50-130) 01/18/22 09:50 HDL Cholesterol 85 mg/dL (40-59) H 01/18/22 09:50 Cholesterol/HDL Ratio 2.08 % 01/18/22 09:50 TSH 1.110 mlU/mL (0.270-4.200) 01/18/22 09:50 Syphilis IgG/IgM Ab Nonreactive (NonReactive) 01/20/22 13:27 SARS-CoV-2 (PCR) Negative (Negative) 01/20/22 14:00 [place]/IV: Voiding Method Toilet Active Medications - Current Medications Current Medications: Generic Name Dose Route Start Last Admin Trade Name Matiasq PRN Reason Stop Dose Admin Acetaminophen 650 mg 01/17/22 11:30 01/17/22 12:42 Acetaminophen 325 Mg Tab PO 650 mg Q6H PRN Administration Pain, Mild (1-3) Amlodipine Besylate 10 mg 01/18/22 10:00 01/21/22 10:32 Amlodipine 10 Mg Tab PO Not Given DAILY [facility] Cetirizine HCl 10 mg 01/17/22 11:00 01/21/22 10:33 Cetirizine 10 Mg Tab PO Not Given DAILY [facility] Dolutegravir Sodium 50 mg 01/17/22 11:00 01/21/22 10:33 Dolutegravir 50 Mg Tab PO Not Given DAILY [facility] Hydrochlorothiazide 25 mg 01/17/22 11:00 01/21/22 10:33 Hydrochlorothiazide 25 Mg Tab PO Not Given QDAY [facility] Lamivudine 300 mg 01/17/22 11:00 01/21/22 10:33 Lamivudine 150 Mg Tab PO Not Given QDAY [facility] Levothyroxine Sodium 100 mcg 01/19/22 06:00 01/22/22 06:02 Levothyroxine 100 Mcg Tab PO 100 mcg 0600 NOHEMI Administration Metformin HCl 500 mg 01/19/22 08:00 01/21/22 08:25 Metformin 500 Mg Tab PO 500 mg QDDIAB NOHEMI Administration Oxycodone/Acetaminophen 1 tab 01/21/22 17:42 01/21/22 17:59 Oxycodone /Acetaminophen 5-325mg Tab PO 1 tab Q6H PRN Administration Pain, Moderate (4-6) Quetiapine Fumarate 100 mg 01/17/22 22:00 01/21/22 21:16 Quetiapine 100 Mg Tab PO 100 mg HS NOHEMI Administration Quetiapine Fumarate 25 mg 01/21/22 11:00 01/21/22 10:41 Quetiapine 25 Mg Tab PO Not Given DAILY NOHEMI Venlafaxine HCl 150 mg 01/17/22 10:15 01/21/22 10:33 Venlafaxine Xr 75 Mg Cap PO Not Given QDAY NOHEMI
[2022-01-22] MEDS: VENLAFAXINE XR 75 MG CAP PO SCH (10:54)
[2022-01-22] MEDS: CETIRIZINE 10 MG TAB PO SCH (10:54)
[2022-01-22] MEDS: amLODIPine 10 MG TAB PO SCH (10:54)
[2022-01-22] MEDS: QUEtiapine 25 MG TAB PO SCH (10:55)
[2022-01-22] MEDS: DOLUTEGRAVIR 50 MG TAB PO SCH (10:55)
[2022-01-22] MEDS: metFORMIN 500 MG TAB PO SCH (10:55)
[2022-01-22] MEDS: hydroCHLOROthiazide 25 MG TAB PO SCH (10:57)
--- NOTE | 2022-01-22 13:10 | Progress Note ---
Subjective Date of service: 01/22/22 Principal diagnosis: Schizoaffective Subjective Comment: The patient was seen today. She says she's doing alright. She says she can't rest because people are interrupting. She denies SI/HI or hallucinations. REVIEW OF SYSTEMS Constitutional: Negative for weight loss ENT: Negative for stridor Respiratory: Negative for cough or hemoptysis All other systems reviewed and are negative MENTAL STATUS General Appearance and Behavior: age appropriate, good eye contact, cooperative, calm Cooperation: Cooperative Psychomotor Behavior: within normal limits Mood: Depressed Affect and affective range: Congruent with stated mood Thought Process: goal oriented Thought Content: reality oriented Speech: Normal volume and Regular rate and rhythm Suicidal Ideation: Denies Homicidal Ideation: Denies Hallucinations: Denies Delusions: None elicited Impulse Control: Limited Insight and Judgment: Limited Memory: Limited Attention: Attentive Orientation: alert and oriented Diagnosis: Schizoaffective Disorder Treatment Plan Patient will be admitted for inpatient psychiatric evaluation, medication adjustment and close monitoring The patient's behavior, mood, sleep and appetite will be closely monitored. Patient will be enrolled in individual and group therapeutic sessions and encouraged to attend. Patient will be provided with a safe and structured environment. Patient's physical health needs will be addressed by the Hospitalist. Hospitalist Consulted Labs including CBC, CMP, Lipid profile and Hemoglobin A1C ordered Social Assessment will be completed and the Sales Representative Education Courses will work with patient and family to ensure a suitable and safe disposition Medication adjustment will be made as clinically indicated Usual Wellness Anabaptist/Preservation: No changes made today The patient agreed on the treatment plan, understood the risk, benefit, a lternative treatment, potential consequence of no treatment, and gave informed consent. Legal Status: voluntary Reaction to Hospitalization: Accepting Case staffed with Dr. Carvalho Medications and Allergies Allergies Allergy/AdvReac Type Severity Reaction Status Date / Time cat dander Allergy Unknown Verified 01/16/22 20:32 No Known Drug Allergies Allergy Unknown Verified 01/16/22 20:32 Dust Allergy Unknown Uncoded 01/16/22 20:32 Home Medications Medication Instructions Recorded Confirmed Last Taken Type Amlodipine Besylate [Norvasc] 10 mg PO DAILY 01/16/22 01/16/22 Unknown History Levothyroxine [Synthroid] 100 mcg PO QAM 01/16/22 01/16/22 Unknown History Losartan [Cozaar] 50 mg PO QDAY 01/16/22 01/16/22 Unknown History QUEtiapine [SEROquel] 100 mg PO HS 01/16/22 01/16/22 Unknown History Venlafaxine HCl [Effexor Xr] 150 mg PO DAILY 01/16/22 01/16/22 Unknown History hydroCHLOROthiazide [HCTZ] 25 mg PO QDAY 01/16/22 01/16/22 Unknown History Apixaban [Eliquis] 5 mg PO UNK 01/17/22 01/17/22 Unknown History Cetirizine HCl [Allergy] 10 mg PO DAILY 01/17/22 01/17/22 Unknown History Diclofenac 1% [Diclofenac 1% 20 applic TP QID 01/17/22 01/17/22 Unknown History topical gel] Dolutegravir Sodium/Lamivudine 1 tab PO DAILY 01/17/22 01/17/22 Unknown History [Dovato 50-300 mg Tablet] Dolutegravir Sodium/Lamivudine 1 tab PO DAILY 01/17/22 01/17/22 Unknown History [Dovato 50-300 mg Tablet] Dolutegravir [Tivicay] 1 tab PO DAILY 01/17/22 01/17/22 Unknown History Gabapentin 300 mg PO UNK 01/17/22 01/17/22 Unknown History Meloxicam [Mobic] 15 mg PO QDAY 01/17/22 01/17/22 Unknown History Oxycodone HCl/Acetaminophen 1 each PO Q6H MDD pain 01/17/22 01/17/22 10/13/21 History [Oxycodone-Acetaminophen 10-325] lamiVUDine [Lamivudine] 2 tab PO DAILY 01/17/22 01/17/22 Unknown History metFORMIN [Glucophage] 500 mg PO UNK 01/17/22 01/17/22 Unknown History Active Meds: Active Medications Acetaminophen (Acetaminophen 325 Mg Tab) 650 mg PO Q6H PRN PRN Reason: Pain, Mild (1-3) Last Admin: 01/17/22 12:42 Dose: 650 mg Cetirizine HCl (Cetirizine 10 Mg Tab) 10 mg PO DAILY [facility] Last Admin: 01/22/22 10:54 Dose: 10 mg Dolutegravir Sodium (Dolutegravir 50 Mg Tab) 50 mg PO DAILY [facility] Last Admin: 01/22/22 10:55 Dose: 50 mg Lamivudine (Lamivudine 150 Mg Tab) 300 mg PO QDAY [facility] Last Admin: 01/22/22 10:57 Dose: 300 mg Levothyroxine Sodium (Levothyroxine 100 Mcg Tab) 100 mcg PO 0600 [facility] Last Admin: 01/22/22 06:02 Dose: 100 mcg Metformin HCl (Metformin 500 Mg Tab) 500 mg PO QDDIAB [facility] Last Admin: 01/22/22 10:55 Dose: 500 mg Oxycodone/Acetaminophen (Oxycodone /Acetaminophen 5-325mg Tab) 1 tab PO Q6H PRN PRN Reason: Pain, Moderate (4-6) Last Admin: 01/21/22 17:59 Dose: 1 tab Quetiapine Fumarate (Quetiapine 100 Mg Tab) 100 mg PO HS [facility] Last Admin: 01/21/22 21:16 Dose: 100 mg Quetiapine Fumarate (Quetiapine 25 Mg Tab) 25 mg PO DAILY [facility] Last Admin: 01/22/22 10:55 Dose: 25 mg Venlafaxine HCl (Venlafaxine Xr 75 Mg Cap) 150 mg PO QDAY [facility] Last Admin: 01/22/22 10:54 Dose: 150 mg Results - Results Labs/Vitals: Laboratory Last Values WBC 6.3 K/mm3 (4.5-11.0) 01/18/22 09:50 RBC 3.62 M/mm3 (3.65-5.03) L 01/18/22 09:50 Hgb 10.6 gm/dl (10.1-14.3) 01/18/22 09:50 Hct 31.7 % (30.3-42.9) 01/18/22 09:50 MCV 88 fl (79-97) 01/18/22 09:50 MCH 29 pg (28-32) 01/18/22 09:50 MCHC 34 % (30-34) 01/18/22 09:50 RDW 14.0 % (13.2-15.2) 01/18/22 09:50 Plt Count 223 K/mm3 (140-440) 01/18/22 09:50 Lymph % (Auto) 30.1 % (13.4-35.0) 01/18/22 09:50 [place] % (Auto) 8.7 % (0.0-7.3) H 01/18/22 09:50 Eos % (Auto) 2.4 % (0.0-4.3) 01/18/22 09:50 Baso % (Auto) 0.8 % (0.0-1.8) 01/18/22 09:50 Lymph # (Auto) 1.9 K/mm3 (1.2-5.4) 01/18/22 09:50 [place] # (Auto) 0.5 K/mm3 (0.0-0.8) 01/18/22 09:50 Eos # (Auto) 0.2 K/mm3 (0.0-0.4) 01/18/22 09:50 Baso # (Auto) 0.0 K/mm3 (0.0-0.1) 01/18/22 09:50 Seg Neutrophils % 58.0 % (40.0-70.0) 01/18/22 09:50 Seg Neutrophils # 3.6 K/mm3 (1.8-7.7) 01/18/22 09:50 Sodium 145 mmol/L (137-145) 01/19/22 13:32 Potassium 4.0 mmol/L (3.6-5.0) 01/19/22 13:32 Chloride 105.1 mmol/L (98-107) 01/19/22 13:32 Carbon Dioxide 31 mmol/L (22-30) H 01/19/22 13:32 Anion Gap 13 mmol/L 01/19/22 13:32 BUN 26 mg/dL (7-17) H 01/19/22 13:32 Creatinine 1.6 mg/dL (0.6-1.2) H 01/19/22 13:32 Estimated GFR 40 ml/min 01/19/22 13:32 BUN/Creatinine Ratio 16 % 01/19/22 13:32 Glucose 114 mg/dL (65-100) H 01/19/22 13:32 POC Glucose 91 mg/dL (70-105) 01/22/22 06:06 Hemoglobin A1c 6.4 % (4-6) H 01/18/22 09:50 Calcium 9.1 mg/dL (8.4-10.2) 01/19/22 13:32 Total Bilirubin 0.30 mg/dL (0.1-1.2) 01/18/22 09:50 AST 12 units/L (5-40) 01/18/22 09:50 ALT 11 units/L (7-56) 01/18/22 09:50 Alkaline Phosphatase 88 units/L (35-129) 01/18/22 09:50 Total Protein 6.6 g/dL (6.3-8.2) 01/18/22 09:50 Albumin 4.1 g/dL (3.9-5) 01/18/22 09:50 Albumin/Globulin Ratio 1.6 % 01/18/22 09:50 Triglycerides 60 mg/dL (2-149) 01/18/22 09:50 Cholesterol 177 mg/dL (50-199) 01/18/22 09:50 LDL Cholesterol Direct 77 mg/dL (50-130) 01/18/22 09:50 HDL Cholesterol 85 mg/dL (40-59) H 01/18/22 09:50 Cholesterol/HDL Ratio 2.08 % 01/18/22 09:50 TSH 1.110 mlU/mL (0.270-4.200) 01/18/22 09:50 Syphilis IgG/IgM Ab Nonreactive (NonReactive) 01/20/22 13:27 SARS-CoV-2 (PCR) Negative (Negative) 01/20/22 14:00 Last Vital Signs Temp 98.5 F 01/21/22 20:53 Pulse 62 01/22/22 12:46 Resp 18 01/22/22 12:46 BP 95/40 01/22/22 12:46 Pulse Ox 99 01/22/22 12:46
[2022-01-22] MEDS: oxyCODONE /ACETAMINOPHEN 5-325MG TAB PO PRN (21:01)
[2022-01-22] MEDS: QUEtiapine 100 MG TAB PO SCH (21:02)
[2022-01-23] MEDS: LEVOTHYROXINE 100 MCG TAB PO SCH (05:38)
--- NOTE | 2022-01-23 08:17 | Progress Note ---
Assessment and Plan Assessment and plan: Assessment and Plan: #Suicidal ideation #Anxiety disorder #Schizophrenia #Hypertension #Type 2 diabetes #Chronic kidney disease, Stage 3 #Cocaine use -+15 minutes behavioral health counseling on drug abstinence #HIV history #Hepatitis B #Hypothyroidism #Advance care planning Disease education conducted, care plan discussed, diagnoses discussed, prognosis discussed, patient is full code, patient acknowledges understanding and agree with care plan, +30 minutes. Plan -Psychiatric medication management per inpatient psych service -Monitor blood pressure daily, low blood pressures noted today. -Accu-Cheks ACHS - labs reviewed: Cr: 1.5 recheck BMP reveals Cr: 1.6 Likely chronic. -d/c Home blood pressure medication: Norvasc, hydrochlorothiazide due to low blood pressure...would recommend reassessment by OP primary care doctor re:restarting these medications. Home thyroid medication: Levothyroxine Home diabetes medication metformin. - Home HIV medication: Tivicay - home Hep B medication: Epivir IMS will continue to follow while patient in hospital. History Interval history: Blood pressure stable. No complaints otherwise. Hospitalist Physical - Physical exam Narrative exam: Physical Exam: VITAL SIGNS: Reviewed. GENERAL: The patient appears normally developed, Vital signs as documented. Obese HEAD: No signs of head trauma. EYES: Pupils are equal. Extraocular motions intact. EARS: Hearing grossly intact. MOUTH: Oropharynx is normal. NECK: No adenopathy, no JVD. CHEST: Chest with clear breath sounds bilaterally. No wheezes, rales, or rhonchi. CARDIAC: Regular rate and rhythm. S1 and S2, without murmurs, gallops, or rubs. VASCULAR: No Edema. Peripheral pulses normal and equal in all extremities. ABDOMEN: Soft, non tender and non distended. No rebound or guarding, and no masses palpated. Bowel Sounds normal. MUSCULOSKELETAL: Good range of motion of all major joints. Extremities without clubbing, cyanosis or edema. NEUROLOGIC EXAM: Alert and oriented x 4. no focal sensory or strength deficits. PSYCHIATRIC: Mood normal. SKIN: detail exam as documented in skin assessment - Constitutional Vitals: Temp Pulse Resp BP Pulse Ox 98.4 F 57 L 18 120/67 99 01/22/22 19:21 01/22/22 19:21 01/22/22 21:01 01/22/22 19:21 01/22/22 19:21 Results - Labs CBC & Chem 7: 01/18/22 09:50 01/19/22 13:32 Labs: Laboratory Last Values WBC 6.3 K/mm3 (4.5-11.0) 01/18/22 09:50 RBC 3.62 M/mm3 (3.65-5.03) L 01/18/22 09:50 Hgb 10.6 gm/dl (10.1-14.3) 01/18/22 09:50 Hct 31.7 % (30.3-42.9) 01/18/22 09:50 MCV 88 fl (79-97) 01/18/22 09:50 MCH 29 pg (28-32) 01/18/22 09:50 MCHC 34 % (30-34) 01/18/22 09:50 RDW 14.0 % (13.2-15.2) 01/18/22 09:50 Plt Count 223 K/mm3 (140-440) 01/18/22 09:50 Lymph % (Auto) 30.1 % (13.4-35.0) 01/18/22 09:50 [place] % (Auto) 8.7 % (0.0-7.3) H 01/18/22 09:50 Eos % (Auto) 2.4 % (0.0-4.3) 01/18/22 09:50 Baso % (Auto) 0.8 % (0.0-1.8) 01/18/22 09:50 Lymph # (Auto) 1.9 K/mm3 (1.2-5.4) 01/18/22 09:50 [place] # (Auto) 0.5 K/mm3 (0.0-0.8) 01/18/22 09:50 Eos # (Auto) 0.2 K/mm3 (0.0-0.4) 01/18/22 09:50 Baso # (Auto) 0.0 K/mm3 (0.0-0.1) 01/18/22 09:50 Seg Neutrophils % 58.0 % (40.0-70.0) 01/18/22 09:50 Seg Neutrophils # 3.6 K/mm3 (1.8-7.7) 01/18/22 09:50 Sodium 145 mmol/L (137-145) 01/19/22 13:32 Potassium 4.0 mmol/L (3.6-5.0) 01/19/22 13:32 Chloride 105.1 mmol/L (98-107) 01/19/22 13:32 Carbon Dioxide 31 mmol/L (22-30) H 01/19/22 13:32 Anion Gap 13 mmol/L 01/19/22 13:32 BUN 26 mg/dL (7-17) H 01/19/22 13:32 Creatinine 1.6 mg/dL (0.6-1.2) H 01/19/22 13:32 Estimated GFR 40 ml/min 01/19/22 13:32 BUN/Creatinine Ratio 16 % 01/19/22 13:32 Glucose 114 mg/dL (65-100) H 01/19/22 13:32 POC Glucose 84 mg/dL (70-105) 01/23/22 06:10 Hemoglobin A1c 6.4 % (4-6) H 01/18/22 09:50 Calcium 9.1 mg/dL (8.4-10.2) 01/19/22 13:32 Total Bilirubin 0.30 mg/dL (0.1-1.2) 01/18/22 09:50 AST 12 units/L (5-40) 01/18/22 09:50 ALT 11 units/L (7-56) 01/18/22 09:50 Alkaline Phosphatase 88 units/L (35-129) 01/18/22 09:50 Total Protein 6.6 g/dL (6.3-8.2) 01/18/22 09:50 Albumin 4.1 g/dL (3.9-5) 01/18/22 09:50 Albumin/Globulin Ratio 1.6 % 01/18/22 09:50 Triglycerides 60 mg/dL (2-149) 01/18/22 09:50 Cholesterol 177 mg/dL (50-199) 01/18/22 09:50 LDL Cholesterol Direct 77 mg/dL (50-130) 01/18/22 09:50 HDL Cholesterol 85 mg/dL (40-59) H 01/18/22 09:50 Cholesterol/HDL Ratio 2.08 % 01/18/22 09:50 TSH 1.110 mlU/mL (0.270-4.200) 01/18/22 09:50 Syphilis IgG/IgM Ab Nonreactive (NonReactive) 01/20/22 13:27 SARS-CoV-2 (PCR) Negative (Negative) 01/20/22 14:00 [place]/IV: Voiding Method Toilet Active Medications - Current Medications Current Medications: Generic Name Dose Route Start Last Admin Trade Name Freq PRN Reason Stop Dose Admin Acetaminophen 650 mg 01/17/22 11:30 01/17/22 12:42 Acetaminophen 325 Mg Tab PO 650 mg Q6H PRN Administration Pain, Mild (1-3) Cetirizine HCl 10 mg 01/17/22 11:00 01/22/22 10:54 Cetirizine 10 Mg Tab PO 10 mg DAILY NOHEMI Administration Dolutegravir Sodium 50 mg 01/17/22 11:00 01/22/22 10:55 Dolutegravir 50 Mg Tab PO 50 mg DAILY NOHEMI Administration Lamivudine 300 mg 01/17/22 11:00 01/22/22 10:57 Lamivudine 150 Mg Tab PO 300 mg QDAY NOHEMI Administration Levothyroxine Sodium 100 mcg 01/19/22 06:00 01/23/22 05:38 Levothyroxine 100 Mcg Tab PO 100 mcg 0600 NOHEMI Administration Metformin HCl 500 mg 01/19/22 08:00 01/22/22 10:55 Metformin 500 Mg Tab PO 500 mg QDDIAB NOHEMI Administration Oxycodone/Acetaminophen 1 tab 01/21/22 17:42 01/22/22 21:01 Oxycodone /Acetaminophen 5-325mg Tab PO 1 tab Q6H PRN Administration Pain, Moderate (4-6) Quetiapine Fumarate 100 mg 01/17/22 22:00 01/22/22 21:02 Quetiapine 100 Mg Tab PO 100 mg HS NOHEMI Administration Quetiapine Fumarate 25 mg 01/21/22 11:00 01/22/22 10:55 Quetiapine 25 Mg Tab PO 25 mg DAILY NOHEMI Administration Venlafaxine HCl 150 mg 01/17/22 10:15 01/22/22 10:54 Venlafaxine Xr 75 Mg Cap PO 150 mg QDAY NOHEMI Administration
[2022-01-23] MEDS: VENLAFAXINE XR 75 MG CAP PO SCH (09:13)
[2022-01-23] MEDS: QUEtiapine 25 MG TAB PO SCH (09:13)
[2022-01-23] MEDS: CETIRIZINE 10 MG TAB PO SCH (09:13)
[2022-01-23] MEDS: DOLUTEGRAVIR 50 MG TAB PO SCH (09:14)
[2022-01-23] MEDS: metFORMIN 500 MG TAB PO SCH (09:14)
--- NOTE | 2022-01-23 12:10 | Discharge Summary ---
Providers - Providers Date of Admission: 01/17/22 05:11 Date of discharge: 01/23/22 Attending physician: ANAID BALLESTEROS MD 01/17/22 03:45 Consult to Physician [CONS] Routine Comment: Consulting Provider: FELIPE REILLY Physician Instructions: Please manage conditions as per H&P Reason For Exam: New admission Primary care physician: ENDOSCOPY REGISTERED NURSE Hospitalization Reason for admission: psychosis Admitting Diagnosis: F25.9 - SCHIZOAFFECTIVE DISORDER, UNSPECIFIED Condition: Stable Hospital course: The patient was provided inpatient psychiatric treatment with safe and supportive care, medication adjustment, adverse effect monitoring, medical evaluations, medical treatments, assessment and psycho-education. The patient's mood, cognition, behavior, moral support are improved and stabilized. St the time of discharge, the patient had no endangering behavior and no debilitating adverse effects. The patient agreed on potential consequences of no treatment and gave informed consent. 10/23 The patient was seen today. She is calm and cooperative. She denies SI/HI or hallucinations of any kind. The patient is clear from psych and will discharge today. Disposition: 01 HOME / SELF CARE / HOMELESS Time spent for discharge: 35 Allergies/Adverse Reactions: Allergies cat dander Allergy (Verified 01/16/22 20:32) Unknown No Known Drug Allergies Allergy (Verified 01/16/22 20:32) Unknown Dust Allergy (Uncoded 01/16/22 20:32) Unknown Vital Signs: Last Vital Signs Temp 98.4 F 01/22/22 19:21 Pulse 57 L 01/22/22 19:21 Resp 18 01/22/22 21:01 BP 120/67 01/22/22 19:21 Pulse Ox 99 01/22/22 19:21 Last Lab: Laboratory Last Values WBC 6.3 K/mm3 (4.5-11.0) 01/18/22 09:50 RBC 3.62 M/mm3 (3.65-5.03) L 01/18/22 09:50 Hgb 10.6 gm/dl (10.1-14.3) 01/18/22 09:50 Hct 31.7 % (30.3-42.9) 01/18/22 09:50 MCV 88 fl (79-97) 01/18/22 09:50 MCH 29 pg (28-32) 01/18/22 09:50 MCHC 34 % (30-34) 01/18/22 09:50 RDW 14.0 % (13.2-15.2) 01/18/22 09:50 Plt Count 223 K/mm3 (140-440) 01/18/22 09:50 Lymph % (Auto) 30.1 % (13.4-35.0) 01/18/22 09:50 [place] % (Auto) 8.7 % (0.0-7.3) H 01/18/22 09:50 Eos % (Auto) 2.4 % (0.0-4.3) 01/18/22 09:50 Baso % (Auto) 0.8 % (0.0-1.8) 01/18/22 09:50 Lymph # (Auto) 1.9 K/mm3 (1.2-5.4) 01/18/22 09:50 [place] # (Auto) 0.5 K/mm3 (0.0-0.8) 01/18/22 09:50 Eos # (Auto) 0.2 K/mm3 (0.0-0.4) 01/18/22 09:50 Baso # (Auto) 0.0 K/mm3 (0.0-0.1) 01/18/22 09:50 Seg Neutrophils % 58.0 % (40.0-70.0) 01/18/22 09:50 Seg Neutrophils # 3.6 K/mm3 (1.8-7.7) 01/18/22 09:50 Sodium 145 mmol/L (137-145) 01/19/22 13:32 Potassium 4.0 mmol/L (3.6-5.0) 01/19/22 13:32 Chloride 105.1 mmol/L (98-107) 01/19/22 13:32 Carbon Dioxide 31 mmol/L (22-30) H 01/19/22 13:32 Anion Gap 13 mmol/L 01/19/22 13:32 BUN 26 mg/dL (7-17) H 01/19/22 13:32 Creatinine 1.6 mg/dL (0.6-1.2) H 01/19/22 13:32 Estimated GFR 40 ml/min 01/19/22 13:32 BUN/Creatinine Ratio 16 % 01/19/22 13:32 Glucose 114 mg/dL (65-100) H 01/19/22 13:32 POC Glucose 84 mg/dL (70-105) 01/23/22 06:10 Hemoglobin A1c 6.4 % (4-6) H 01/18/22 09:50 Calcium 9.1 mg/dL (8.4-10.2) 01/19/22 13:32 Total Bilirubin 0.30 mg/dL (0.1-1.2) 01/18/22 09:50 AST 12 units/L (5-40) 01/18/22 09:50 ALT 11 units/L (7-56) 01/18/22 09:50 Alkaline Phosphatase 88 units/L (35-129) 01/18/22 09:50 Total Protein 6.6 g/dL (6.3-8.2) 01/18/22 09:50 Albumin 4.1 g/dL (3.9-5) 01/18/22 09:50 Albumin/Globulin Ratio 1.6 % 01/18/22 09:50 Triglycerides 60 mg/dL (2-149) 01/18/22 09:50 Cholesterol 177 mg/dL (50-199) 01/18/22 09:50 LDL Cholesterol Direct 77 mg/dL (50-130) 01/18/22 09:50 HDL Cholesterol 85 mg/dL (40-59) H 01/18/22 09:50 Cholesterol/HDL Ratio 2.08 % 01/18/22 09:50 TSH 1.110 mlU/mL (0.270-4.200) 01/18/22 09:50 Syphilis IgG/IgM Ab Nonreactive (NonReactive) 01/20/22 13:27 SARS-CoV-2 (PCR) Negative (Negative) 01/20/22 14:00 Core Measure Documentation - Palliative Care Palliative Care/ Comfort Measures: Not Applicable - Core Measures Any of the following diagnoses?: none Exam - Constitutional Vitals: Temp Pulse Resp BP Pulse Ox 98.4 F 57 L 18 120/67 99 01/22/22 19:21 01/22/22 19:21 01/22/22 21:01 01/22/22 19:21 01/22/22 19:21 General appearance: Present: no acute distress - EENT Eyes: Present: PERRL, EOM intact ENT: hearing intact, clear oral mucosa - Neck Neck: Present: supple, normal ROM - Respiratory Respiratory effort: normal Plan Activity: advance as tolerated Weight Bearing Status: Weight Bear as Tolerated Care Plan Goals: Maintain good and stable mental health Plan of Treatment: The patient should be compliant with medications, not to use drugs, and not to drink alcohol. The patient understands that if suicidal ideas, homicidal ideas or any endangering feeling arise, the patient should seek assistance including, but not limited to crisis hotline, and emergency room. Assessment: Schizoaffective Disorder Follow up with: PRIMARY CARE, [Primary Care Provider] - 7 Days Prescriptions: metFORMIN [Glucophage] 500 mg PO QDDIAB #30 tablet QUEtiapine [SEROquel] 100 mg PO HS #30 QUEtiapine [SEROquel] 25 mg PO DAILY #60 tablet
[2022-01-23] MEDS: QUEtiapine 100 MG TAB PO SCH (21:24)
[2022-01-24] MEDS: LEVOTHYROXINE 100 MCG TAB PO SCH (06:07)
[2022-01-24 09:06] VITALS: BP 126/64
[2022-01-24] MEDS: VENLAFAXINE XR 75 MG CAP PO SCH (09:22)
[2022-01-24] MEDS: metFORMIN 500 MG TAB PO SCH (09:23)
[2022-01-24] MEDS: CETIRIZINE 10 MG TAB PO SCH (09:24)
[2022-01-24] MEDS: QUEtiapine 25 MG TAB PO SCH (09:24)
[2022-01-24] MEDS: DOLUTEGRAVIR 50 MG TAB PO SCH (09:25)
--- NOTE | 2022-01-24 10:44 | Progress Note ---
Subjective Date of service: 01/23/22 Principal diagnosis: Schizoaffective Subjective Comment: The patient was seen today. She says she's doing alright. The patient is clear from psych. She is was discharging today but had transportation issues, per . She She denies SI/HI or hallucinations. REVIEW OF SYSTEMS Constitutional: Negative for weight loss ENT: Negative for stridor Respiratory: Negative for cough or hemoptysis All other systems reviewed and are negative MENTAL STATUS General Appearance and Behavior: age appropriate, good eye contact, cooperative, calm Cooperation: Cooperative Psychomotor Behavior: within normal limits Mood: Depressed Affect and affective range: Congruent with stated mood Thought Process: goal oriented Thought Content: reality oriented Speech: Normal volume and Regular rate and rhythm Suicidal Ideation: Denies Homicidal Ideation: Denies Hallucinations: Denies Delusions: None elicited Impulse Control: Limited Insight and Judgment: Limited Memory: Limited Attention: Attentive Orientation: alert and oriented Diagnosis: Schizoaffective Disorder Treatment Plan Patient will be admitted for inpatient psychiatric evaluation, medication adjustment and close monitoring The patient's behavior, mood, sleep and appetite will be closely monitored. Patient will be enrolled in individual and group therapeutic sessions and encouraged to attend. Patient will be provided with a safe and structured environment. Patient's physical health needs will be addressed by the Hospitalist. Hospitalist Consulted Labs including CBC, CMP, Lipid profile and Hemoglobin A1C ordered Social Assessment will be completed and the Right Of Way Manager will work with patient and family to ensure a suitable and safe disposition Medication adjustment will be made as clinically indicated Usual Wellness Restorationism/Preservation: No changes made today The patient agreed on the treatment plan, understood the risk, benefit, alternative treatment, potential consequence of no treatment, and gave informed consent. Legal Status: voluntary Reaction to Hospitalization: Accepting Case staffed with Dr. Carvalho Medications and Allergies Allergies Allergy/AdvReac Type Severity Reaction Status Date / Time cat dander Allergy Unknown Verified 01/16/22 20:32 No Known Drug Allergies Allergy Unknown Verified 01/16/22 20:32 Dust Allergy Unknown Uncoded 01/16/22 20:32 Home Medications Medication Instructions Recorded Confirmed Last Taken Type Venlafaxine HCl [Effexor Xr] 150 mg PO DAILY 01/16/22 01/16/22 Unknown History Apixaban [Eliquis] 5 mg PO UNK 01/17/22 01/17/22 Unknown History Diclofenac 1% [Diclofenac 1% 20 applic TP QID 01/17/22 01/17/22 Unknown History topical gel] Oxycodone HCl/Acetaminophen 1 each PO Q6H MDD pain 01/17/22 01/17/22 10/13/21 History [Oxycodone-Acetaminophen 10-325] metFORMIN [Glucophage] 500 mg PO UNK 01/17/22 01/17/22 Unknown History QUEtiapine [SEROquel] 25 mg PO DAILY #60 tablet 01/23/22 Unknown Rx QUEtiapine [SEROquel] 100 mg PO HS #30 01/23/22 Unknown Rx metFORMIN [Glucophage] 500 mg PO QDDIAB #30 tablet 01/23/22 Unknown Rx Amlodipine Besylate [Norvasc] 10 mg PO DAILY #30 01/24/22 Unknown Rx Cetirizine HCl [Allergy] 10 mg PO DAILY #30 01/24/22 Unknown Rx Dolutegravir Sodium/Lamivudine 1 tab PO DAILY #30 01/24/22 Unknown Rx [Dovato 50-300 mg Tablet] Dolutegravir [Tivicay] 1 tab PO DAILY #30 01/24/22 Unknown Rx Gabapentin 300 mg PO UNK #30 cap 01/24/22 Unknown Rx Levothyroxine [Synthroid] 100 mcg PO QAM #30 01/24/22 Unknown Rx Losartan [Cozaar] 50 mg PO QDAY #30 01/24/22 Unknown Rx Meloxicam [Mobic] 15 mg PO QDAY #30 01/24/22 Unknown Rx Venlafaxine Xr [Effexor XR] 150 mg PO QDAY #60 capsule 01/24/22 Unknown Rx hydroCHLOROthiazide [HCTZ] 25 mg PO QDAY #30 01/24/22 Unknown Rx lamiVUDine [Lamivudine] 2 tab PO DAILY #30 01/24/22 Unknown Rx Active Meds: Active Medications Acetaminophen (Acetaminophen 325 Mg Tab) 650 mg PO Q6H PRN PRN Reason: Pain, Mild (1-3) Last Admin: 01/17/22 12:42 Dose: 650 mg Cetirizine HCl (Cetirizine 10 Mg Tab) 10 mg PO DAILY NOHEMI Last Admin: 01/24/22 09:24 Dose: 10 mg Dolutegravir Sodium (Dolutegravir 50 Mg Tab) 50 mg PO DAILY NOHEMI Last Admin: 08/16/22 09:25 Dose: 50 mg Lamivudine (Lamivudine 150 Mg Tab) 300 mg PO QDAY [facility] Last Admin: 01/24/22 09:23 Dose: 300 mg Levothyroxine Sodium (Levothyroxine 100 Mcg Tab) 100 mcg PO 0600 [facility] Last Admin: 01/24/22 06:07 Dose: 100 mcg Metformin HCl (Metformin 500 Mg Tab) 500 mg PO QDDIAB [facility] Last Admin: 01/24/22 09:23 Dose: 500 mg Oxycodone/Acetaminophen (Oxycodone /Acetaminophen 5-325mg Tab) 1 tab PO Q6H PRN PRN Reason: Pain, Moderate (4-6) Last Admin: 01/22/22 21:01 Dose: 1 tab Quetiapine Fumarate (Quetiapine 100 Mg Tab) 100 mg PO [facility] Last Admin: 01/23/22 21:24 Dose: 100 mg Quetiapine Fumarate (Quetiapine 25 Mg Tab) 25 mg PO DAILY [facility] Last Admin: 01/24/22 09:24 Dose: 25 mg Venlafaxine HCl (Venlafaxine Xr 75 Mg Cap) 150 mg PO QDAY [facility] Last Admin: 01/24/22 09:22 Dose: 150 mg Results - Results Labs/Vitals: Laboratory Last Values WBC 6.3 K/mm3 (4.5-11.0) 01/18/22 09:50 RBC 3.62 M/mm3 (3.65-5.03) L 01/18/22 09:50 Hgb 10.6 gm/dl (10.1-14.3) 01/18/22 09:50 Hct 31.7 % (30.3-42.9) 01/18/22 09:50 MCV 88 fl (79-97) 01/18/22 09:50 MCH 29 pg (28-32) 01/18/22 09:50 MCHC 34 % (30-34) 01/18/22 09:50 RDW 14.0 % (13.2-15.2) 01/18/22 09:50 Plt Count 223 K/mm3 (140-440) 01/18/22 09:50 Lymph % (Auto) 30.1 % (13.4-35.0) 01/18/22 09:50 [place] % (Auto) 8.7 % (0.0-7.3) H 01/18/22 09:50 Eos % (Auto) 2.4 % (0.0-4.3) 01/18/22 09:50 Baso % (Auto) 0.8 % (0.0-1.8) 01/18/22 09:50 Lymph # (Auto) 1.9 K/mm3 (1.2-5.4) 01/18/22 09:50 [place] # (Auto) 0.5 K/mm3 (0.0-0.8) 01/18/22 09:50 Eos # (Auto) 0.2 K/mm3 (0.0-0.4) 01/18/22 09:50 Baso # (Auto) 0.0 K/mm3 (0.0-0.1) 01/18/22 09:50 Seg Neutrophils % 58.0 % (40.0-70.0) 01/18/22 09:50 Seg Neutrophils # 3.6 K/mm3 (1.8-7.7) 01/18/22 09:50 Sodium 145 mmol/L (137-145) 01/19/22 13:32 Potassium 4.0 mmol/L (3.6-5.0) 01/19/22 13:32 Chloride 105.1 mmol/L (98-107) 01/19/22 13:32 Carbon Dioxide 31 mmol/L (22-30) H 01/19/22 13:32 Anion Gap 13 mmol/L 01/19/22 13:32 BUN 26 mg/dL (7-17) H 01/19/22 13:32 Creatinine 1.6 mg/dL (0.6-1.2) H 01/19/22 13:32 Estimated GFR 40 ml/min 01/19/22 13:32 BUN/Creatinine Ratio 16 % 01/19/22 13:32 Glucose 114 mg/dL (65-100) H 01/19/22 13:32 POC Glucose 88 mg/dL (70-105) 01/24/22 06:16 Hemoglobin A1c 6.4 % (4-6) H 01/18/22 09:50 Calcium 9.1 mg/dL (8.4-10.2) 01/19/22 13:32 Total Bilirubin 0.30 mg/dL (0.1-1.2) 01/18/22 09:50 AST 12 units/L (5-40) 01/18/22 09:50 ALT 11 units/L (7-56) 01/18/22 09:50 Alkaline Phosphatase 88 units/L (35-129) 01/18/22 09:50 Total Protein 6.6 g/dL (6.3-8.2) 01/18/22 09:50 Albumin 4.1 g/dL (3.9-5) 01/18/22 09:50 Albumin/Globulin Ratio 1.6 % 01/18/22 09:50 Triglycerides 60 mg/dL (2-149) 01/18/22 09:50 Cholesterol 177 mg/dL (50-199) 01/18/22 09:50 LDL Cholesterol Direct 77 mg/dL (50-130) 01/18/22 09:50 HDL Cholesterol 85 mg/dL (40-59) H 01/18/22 09:50 Cholesterol/HDL Ratio 2.08 % 01/18/22 09:50 TSH 1.110 mlU/mL (0.270-4.200) 01/18/22 09:50 Syphilis IgG/IgM Ab Nonreactive (NonReactive) 01/20/22 13:27 SARS-CoV-2 (PCR) Negative (Negative) 01/20/22 14:00 Last Vital Signs Temp 98.0 F 01/23/22 20:57 Pulse 62 01/24/22 09:03 Resp 16 01/24/22 09:03 BP 126/64 01/24/22 09:03 Pulse Ox 100 01/24/22 09:03
--- NOTE | 2022-01-24 10:47 | Discharge Summary ---
Providers - Providers Date of Admission: 01/17/22 05:11 Date of discharge: 01/24/22 Attending physician: ANAID BALLESTEROS MD 01/17/22 03:45 Consult to Physician [CONS] Routine Comment: Consulting Provider: LALIT DYER Physician Instructions: Please manage conditions as per H&P Reason For Exam: New admission Primary care physician: ORTHOPAEDIC PHYSICIAN ASSISTANT Hospitalization Reason for admission: psychosis Admitting Diagnosis: F25.9 - SCHIZOAFFECTIVE DISORDER, UNSPECIFIED Condition: Stable Hospital course: The patient was provided inpatient psychiatric treatment with safe and supportive care, medication adjustment, adverse effect monitoring, medical evaluations, medical treatments, assessment and psycho-education. The patient's mood, cognition, behavior, moral support are improved and stabilized. St the time of discharge, the patient had no endangering behavior and no debilitating adverse effects. The patient agreed on potential consequences of no treatment and gave informed consent. Disposition: 01 HOME / SELF CARE / HOMELESS Time spent for discharge: 35 Allergies/Adverse Reactions: Allergies cat dander Allergy (Verified 01/16/22 20:32) Unknown No Known Drug Allergies Allergy (Verified 01/16/22 20:32) Unknown Dust Allergy (Uncoded 01/16/22 20:32) Unknown Vital Signs: Last Vital Signs Temp 98.0 F 01/23/22 20:57 Pulse 62 01/24/22 09:03 Resp 16 01/24/22 09:03 BP 126/64 01/24/22 09:03 Pulse Ox 100 01/24/22 09:03 Last Lab: Laboratory Last Values WBC 6.3 K/mm3 (4.5-11.0) 01/18/22 09:50 RBC 3.62 M/mm3 (3.65-5.03) L 01/18/22 09:50 Hgb 10.6 gm/dl (10.1-14.3) 01/18/22 09:50 Hct 31.7 % (30.3-42.9) 01/18/22 09:50 MCV 88 fl (79-97) 01/18/22 09:50 MCH 29 pg (28-32) 01/18/22 09:50 MCHC 34 % (30-34) 01/18/22 09:50 RDW 14.0 % (13.2-15.2) 01/18/22 09:50 Plt Count 223 K/mm3 (140-440) 01/18/22 09:50 Lymph % (Auto) 30.1 % (13.4-35.0) 01/18/22 09:50 [place] % (Auto) 8.7 % (0.0-7.3) H 01/18/22 09:50 Eos % (Auto) 2.4 % (0.0-4.3) 01/18/22 09:50 Baso % (Auto) 0.8 % (0.0-1.8) 01/18/22 09:50 Lymph # (Auto) 1.9 K/mm3 (1.2-5.4) 01/18/22 09:50 [place] # (Auto) 0.5 K/mm3 (0.0-0.8) 01/18/22 09:50 Eos # (Auto) 0.2 K/mm3 (0.0-0.4) 01/18/22 09:50 Baso # (Auto) 0.0 K/mm3 (0.0-0.1) 01/18/22 09:50 Seg Neutrophils % 58.0 % (40.0-70.0) 01/18/22 09:50 Seg Neutrophils # 3.6 K/mm3 (1.8-7.7) 01/18/22 09:50 Sodium 145 mmol/L (137-145) 01/19/22 13:32 Potassium 4.0 mmol/L (3.6-5.0) 01/19/22 13:32 Chloride 105.1 mmol/L (98-107) 01/19/22 13:32 Carbon Dioxide 31 mmol/L (22-30) H 01/19/22 13:32 Anion Gap 13 mmol/L 01/19/22 13:32 BUN 26 mg/dL (7-17) H 01/19/22 13:32 Creatinine 1.6 mg/dL (0.6-1.2) H 01/19/22 13:32 Estimated GFR 40 ml/min 01/19/22 13:32 BUN/Creatinine Ratio 16 % 01/19/22 13:32 Glucose 114 mg/dL (65-100) H 01/19/22 13:32 POC Glucose 88 mg/dL (70-105) 01/24/22 06:16 Hemoglobin A1c 6.4 % (4-6) H 01/18/22 09:50 Calcium 9.1 mg/dL (8.4-10.2) 01/19/22 13:32 Total Bilirubin 0.30 mg/dL (0.1-1.2) 01/18/22 09:50 AST 12 units/L (5-40) 01/18/22 09:50 ALT 11 units/L (7-56) 01/18/22 09:50 Alkaline Phosphatase 88 units/L (35-129) 01/18/22 09:50 Total Protein 6.6 g/dL (6.3-8.2) 01/18/22 09:50 Albumin 4.1 g/dL (3.9-5) 01/18/22 09:50 Albumin/Globulin Ratio 1.6 % 01/18/22 09:50 Triglycerides 60 mg/dL (2-149) 01/18/22 09:50 Cholesterol 177 mg/dL (50-199) 01/18/22 09:50 LDL Cholesterol Direct 77 mg/dL (50-130) 01/18/22 09:50 HDL Cholesterol 85 mg/dL (40-59) H 01/18/22 09:50 Cholesterol/HDL Ratio 2.08 % 01/18/22 09:50 TSH 1.110 mlU/mL (0.270-4.200) 01/18/22 09:50 Syphilis IgG/IgM Ab Nonreactive (NonReactive) 01/20/22 13:27 SARS-CoV-2 (PCR) Negative (Negative) 01/20/22 14:00 Core Measure Documentation - Palliative Care Palliative Care/ Comfort Measures: Not Applicable - Core Measures Any of the following diagnoses?: none Exam - Constitutional Vitals: Temp Pulse Resp BP Pulse Ox 98.0 F 62 16 126/64 100 01/23/22 20:57 01/24/22 09:03 01/24/22 09:03 01/24/22 09:03 01/24/22 09:03 General appearance: Present: no acute distress - EENT Eyes: Present: PERRL, EOM intact ENT: hearing intact, clear oral mucosa - Neck Neck: Present: supple, normal ROM - Respiratory Respiratory effort: normal Plan Activity: advance as tolerated Weight Bearing Status: Weight Bear as Tolerated Care Plan Goals: Maintain good and stable mental health Plan of Treatment: The patient should be compliant with medications, not to use drugs, and not to drink alcohol. The patient understands that if suicidal ideas, homicidal ideas or any endangering feeling arise, the patient should seek assistance including, but not limited to crisis hotline, and emergency room. Assessment: Schizoaffective Disorder Follow up with: PRIMARY CARE, [Primary Care Provider] - 7 Days Prescriptions: Cetirizine HCl [Allergy] 10 mg PO DAILY #30 Losartan [Cozaar] 50 mg PO QDAY #30 Dolutegravir Sodium/Lamivudine [Dovato 50-300 mg Tablet] 1 tab PO DAILY #30 Venlafaxine Xr [Effexor XR] 150 mg PO QDAY #60 capsule Gabapentin 300 mg PO UNK #30 cap metFORMIN [Glucophage] 500 mg PO QDDIAB #30 tablet hydroCHLOROthiazide [HCTZ] 25 mg PO QDAY #30 lamiVUDine [Lamivudine] 2 tab PO DAILY #30 Meloxicam [Mobic] 15 mg PO QDAY #30 Amlodipine Besylate [Norvasc] 10 mg PO DAILY #30 QUEtiapine [SEROquel] 100 mg PO HS #30 QUEtiapine [SEROquel] 25 mg PO DAILY #60 tablet Levothyroxine [Synthroid] 100 mcg PO QAM #30 Dolutegravir [Tivicay] 1 tab PO DAILY #30
== END 2022-01-24 11:04 | disposition home or self-care (01) | DRG 885 ==
LOC: UNDOADMIN 14:35 → 3A 14:35 → 5A 01-17 05:11
PROVIDERS: ADMIT Psychiatry & Neurology Psychiatry; ATTEND Psychiatry & Neurology Psychiatry
DX: F25.9 Schizoaffective disorder, unspecified (principal); F41.9 Anxiety disorder, unspecified; Z20.822 Contact with and (suspected) exposure to COVID-19; F32.9 Major depressive disorder, single episode, unspecified; R45.851 Suicidal ideations; Z98.51 Tubal ligation status; Z79.84 Long term (current) use of oral hypoglycemic drugs; Z79.899 Other long term (current) drug therapy; F14.90 Cocaine use, unspecified, uncomplicated; B19.10 Unspecified viral hepatitis B without hepatic coma; E03.9 Hypothyroidism, unspecified; E11.22 Type 2 diabetes mellitus with diabetic chronic kidney disease; N18.30 Chronic kidney disease, stage 3 unspecified; I12.9 Hypertensive chronic kidney disease with stage 1 through stage 4 chronic kidney disease, or unspecified chronic kidney disease
CPT/HCPCS: 36415; 71045; 80048; 80053; 80061; 82962; 83036; 84443; 85025; 86592; G0378; U0003